=== PATIENT | female | born 1995 | race African-American/Black ===

== ENCOUNTER 2023-09-28 21:35 | Emergency (ER) | payer BC, SELFPAY ==
--- NOTE | ~2023-09-28 | XR_ITS ---
EXAM: XR ankle RT min 3V, XR foot RT min 3V DATE: 09/28/2023 22:02 (accession [id number]), 09/28/2023 21:59 (accession [id number]) HISTORY: rolled right ankle . COMPARISON: None available. FINDINGS: Normal mineralization. Avulsion fracture along the superior aspect of the navicular. No ot her fracture. No dislocation. No lytic or blastic lesion. Joint spaces are maintained. Mild hallux va lgus. No erosion or periosteal change. Mild soft tissue swelling over the fracture site. IMPRESSION: Talonavicular capsular avulsion. No other acute osseous finding in the right ankle or joshua t. Reviewed, dictated and finalized at location [facility] IMPRESSION: Talonavicular capsular avulsion. No other acute osseous finding in the right ankle or foot.
[2023-09-28 21:41] VITALS: BP 112/77; PULSE 117; RESP 16; TEMP 36.6; O2SAT 100
--- NOTE | 2023-09-28 22:33 | ED.GENADULT ---
HPI - General Adult General Chief complaint: Extremity Injury, Lower Stated complaint: R foot pain Time Seen by Provider: 09/28/23 21:52 Source: patient Mode of arrival: ambulatory Limitations: no limitations History of Present Illness HPI narrative: This is a 27-year-old female who presents to the ED with chief complaint of ankle injury that occurred just prior to arrival. Patient states she was walking down stairs and missed the last step. She reports an inversion injury to the ankle. [place] cracking as she rolled it. Endorses trouble with weight-bearing. Denies numbness, weakness or any further injury. Review of Systems Review of Systems: All systems as dictated in HPI Exam Narrative: GENERAL: Well-appearing, well-nourished, and in no acute distress. HEAD: Normocephalic, atraumatic. EYES: PERRLA and EOMI. ENT: Nares clear, no rhinorrhea or epistaxis. Mucous membranes moist. Oropharynx without tonsillar hypertrophy exudate or other lesions. NECK: Supple. No adenopathy or masses. CHEST: No respiratory distress. Clear to auscultation. No wheezes rales or rhonchi HEART: Regular rate and rhythm. No murmur heard. Normal peripheral pulses. ABDOMEN: Soft, nontender, nondistended, normal active bowel sounds. MSK: Right lower extremity: Mild swelling to the right ankle. Tenderness to the right lateral ankle and dorsum of the foot proximally. Neurovascularly intact distally. Soft compartments Left lower extremity: Benign SKIN: Warm, dry, no rash. NEURO: Alert and oriented x3. No focal deficits. PSYCH: Normal mood and affect. Course Vital Signs Vital signs: Vital Signs Temperature 97.8 F 09/28/23 21:41 Pulse Rate 117 H 09/28/23 21:41 Respiratory Rate 16 09/28/23 21:41 Blood Pressure 112/77 09/28/23 21:41 Pulse Oximetry 100 09/28/23 21:41 Oxygen Delivery Room Air 09/28/23 21:41 Temperature 97.8 F 09/28/23 21:41 Pulse Rate 91 09/28/23 23:03 Respiratory Rate 15 09/28/23 23:03 Blood Pressure 110/68 09/28/23 23:03 Pulse Oximetry 99 09/28/23 23:03 Oxygen Delivery Room Air 09/28/23 21:41 Medical Decision Making MDM Narrative Medical decision making narrative: This is a 27-year-old female who presents to the ED for chief complaint of right ankle injury. Vitals are normal. Exam shows mild swelling and tenderness to the ankle and foot. No bruising, deformity. Right foot x-ray: IMPRESSION: Talonavicular capsular avulsion. No other acute osseous finding in the right ankle or foot. . Overall presentation is consistent with ankle sprain. Crutches and Gerald wrap given. Pt will be discharged in stable condition. Return precautions given and supportive measures discussed. Pt is understanding and agreeable with plan for discharge and follow-up with PCP. Vital Signs Vital Signs: Vital Signs Temperature 97.8 F 09/28/23 21:41 Pulse Rate 117 H 09/28/23 21:41 Respiratory Rate 16 09/28/23 21:41 Blood Pressure 112/77 09/28/23 21:41 Pulse Oximetry 100 09/28/23 21:41 Oxygen Delivery Room Air 09/28/23 21:41 Temperature 97.8 F 09/28/23 21:41 Pulse Rate 91 09/28/23 23:03 Respiratory Rate 15 09/28/23 23:03 Blood Pressure 110/68 09/28/23 23:03 Pulse Oximetry 99 09/28/23 23:03 Oxygen Delivery Room Air 09/28/23 21:41 Discharge Plan Discharge Clinical Impression: Ankle sprain and strain Patient Disposition: Home, Self-Care Condition: Stable Instructions: Antibiotic Form Additional Instructions: Your exam and imaging today show evidence of ankle sprain Use the Gerald wrap and crutches, progress from nonweightbearing to weight-bearing over the course of the next week. Follow-up with your PCP. Use ibuprofen every 4-6 hours as needed for pain control. Rest, ice and elevate the extremity as well. If you have any new or worsening symptoms please return to the ER for further evaluation. Follow-up/Referrals: PHYSICIAN,JUNIOR TECHNICAL WRITER [
[2023-09-28 23:03] VITALS: BP 110/68; PULSE 91; RESP 15; O2SAT 99
== END 2023-09-28 23:09 | disposition home or self-care (01) ==
PROVIDERS: Emergency Provider Physician Assistant
DX: S93.401A Sprain of unspecified ligament of right ankle, initial encounter (principal); S96.911A Strain of unspecified muscle and tendon at ankle and foot level, right foot, initial encounter; X50.9XXA Other and unspecified overexertion or strenuous movements or postures, initial encounter
CPT/HCPCS: 73610; 73630; 99283

== ENCOUNTER 2025-03-05 23:04 | Emergency (ER) | payer BC, SELFPAY ==
--- NOTE | ~2025-03-05 | CT_ITS ---
CT soft tissue neck w con Ordering provider: Ovidio Alonso APRN History: 29 years Female with . facial swelling w/ cellulitis left face and neck . Comparison: None. Technique: CT soft tissues neck was performed with contrast. Coronal and sagittal reformatted images were also obtained. The dose-length product was 442.23 mGy-cm. Findings: LOWER HEAD: The visualized brain parenchyma, optic globes/orbits and mastoids are normal. Mucoperio steal thickening within the left maxillary sinus. Remaining paranasal sinuses are clear. SALIVARY GLANDS: Unremarkable THYROID: Homogeneous SUPRAHYOID DEEP SPACES: Unremarkable. CAROTID ARTERIES: Unremarkable. JUGULAR VEINS: Patent. TONSILS: Both the lingual and posterior tonsils are prominent, without abnormal attenuation suggestin g a peritonsillar. ORAL CAVITY: Partially obscured by dental amalgam. Periapical abscesses around tooth 4., 8, 10, 13, 14 and 15 Subcentimeter periosteal abscess surrounding the posterior left maxillary sinus, measuring 10 x 9 x 3 mm with surrounding inflammatory change. PHARYNX, LARYNX AND TRACHEA: Patent and unremarkable. No prevertebral soft tissue swelling. SUPERFICIAL SOFT TISSUES: No pathologically enlarged or morphologically within the bilateral cervical chains or supraclavicular regions. Multiple scattered nonpathologically lymph nodes, a nonspecific f inding. THORACIC INLET/VISUALIZED UPPER CHEST: Unremarkable. SKELETAL: No significant degenerative change. IMPRESSION: Multiple dental caries with periapical abscesses, as detailed above. Small periosteal abscess along t he left posterior maxilla with surrounding inflammatory change within the soft tissues. Chronic left maxillary sinusitis. Reviewed, dictated and finalized at location A. IMPRESSION: Multiple dental caries with periapical abscesses, as detailed above. Small kristin osteal abscess along the left posterior maxilla with surrounding inflammatory c hange within the soft tissues. Chronic left maxillary sinusitis.
--- OUTSIDE RECORDS SUMMARY | 2025-03-05 23:07 | XMS_ITS | Clinical Summary ---
Author Organization [facility] Address [address] [place] [address] Phone Care Team Providers Care Hotel Services Sales Representative Name Role Phone Amari Salgado MD Unavailable [phone] Provider, Not On File Primary Care Provider Unav ailable Allergies Active Allergy Reactions Criticality Noted Date Comments Na Ferric Gluc Cplx In Sucrose Hives,Shortness of Breath,Swelling,Other (see Comments) High 02/26/2024 Back spasms/pain Iron Dextran Other (see Comments),Shortness of Breath High 09/29/2020 Medications ferrous sulfate 324 (65 Fe) MG Tablet Delayed Response Take 1 Tablet by mouth 3 times daily. 04/11/2018 Active oxyCODONE-aceta minophen (PERCOCET) 5-325 MG TabletIndicatio ns:Sickle cell disease without crisis (HCC) Take 1 Tablet by mouth every 8 hours as needed for Moderate or more severe pain. 30 Tablet 03/19/2024 Active Active Problems Problem Noted Date Diagnosed Date Iron deficiency anemia, unspecified 02/24/2024 Sickle cell disease without crisis 02/23/2024 Anemia 02/23/2024 Family History Medical History Relation Name Comments Cancer Father prostate Hypertension Mother Relation Name Status Comments Brother 1 Alive Brother 2 Alive Father Alive Mother Alive Sister Alive Social History Tobacco Use Types Packs/Day Years Used Date Smoking Tobacco: Never Smokeless Tobacco: Never Tobacco Cessation:Counseling Given: Not Answered Alcohol Use Standard Drinks/Week Comments Yes 0 (1 standard drink = 0.6 oz pur e alcohol) wine weekly Comments Unknown Sex and Gender Information Value Date Recorded Sex Assigned at Not on file Legal Sex Female 9:28 AM CDT Gender Identity Not on file Sexual Orientation Not on file Last Filed Vital Signs Vital Sign Reading Time Taken Comments Blood Pressure 120/80 09/27/2024 1:00 PM TAILORING TEACHER Pulse 98 09/27/2024 1:00 PM TAILORING TEACHER Temperature 36.6 C (97.8 F) 09/27/2024 1:00 PM TAILORING TEACHER Respiratory Rate 18 09/27/2024 1:00 PM TAILORING TEACHER Oxygen Saturation 99% 09/27/2024 1:00 PM TAILORING TEACHER Inhaled Oxygen Concentration - - Weight 72.8 kg (160 lb 9.6 oz) 09/27/2024 1:00 P M TAILORING TEACHER Height 160 cm (5' 3) 09/27/2024 1:00 PM TAILORING TEACHER Body Mass Index 28.45 09/27/2024 1:00 PM TAILORING TEACHER Plan of Treatment Health Maintenance Due Date Last Done Comments Hepatitis C Virus (HCV) Screening 1994 Meningococcal Immunization (ACWY) (1 - Risk 2-dose series) 1996 Human Papillomavirus (HPV) Immunization (1 - 3-dose series) 2009 Pneumococcal Immunization Combined (1 of 2 - PCV) 2013 Pap Smear 2015 SARS-COV-2 Immunization ( - season) 2024 Cervical Cancer Screening (CCS) 2024 HPV/Cotest 2024 Influenza Immunization (#1) 2025 07/21/2014 Respiratory Syncytial Virus (RSV) Immunization (Adult) (1 - 1-dose 75+ series) 2069 Hepatitis B Immunization Completed 995, 02/18/1995, 1994 TdaP Immunization Completed 05/29/2009 Rotavirus Immunization Aged Out No lo nger eligible based on patient's age to complete this topic Insurance [place] [id number] Care Teams Hotel Services Sales Representative Relationship Specialty Start Date End Date Provider, Not On File MA PCP - General 02/23/24 Amari Salgado MD [address] [place] [id number] Consulting Physician Oncology 02/13/24
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
--- OUTSIDE RECORDS SUMMARY | 2025-03-05 23:07 | XMS_ITS | Referral Summary ---
Author Organization [facility] at [facility] Office Center Address [address] [place] [address] Care Team Providers Care Chain Dyer Name Role Phone Yaquelin Luis MD Unavailable [phone] [place] Hand TREE GIRDLER Primary Care Provider [phone] Allergies Active Allergy Reactions Criticality Noted Date [...] (09/13/2020): Added automatically from request for surgery [id number] Nasal turbinate hypertrophy 09/13/2020 Overview (09/13/2020): Added automatically from request for surgery [id number] Nasal septal deviation 09/13/2020 Overview (09/26/2020): Added automatically from request for surgery [id number] Adult general medical exam 10/19/2019 Iron deficiency anemia due to chronic blood loss 10/19/2019 Overview (04/06/2023): Last Assessment & Plan: Stable Cont ferrous sulfate Menorrhagia 07/21/2014 Assessment & Plan (05/15/2020 12:24 PM CDT): Persistent Will refer to Dr. Griffith Assessment & Plan (03/16/2020 4:34 AM CDT): Uncontrolled F/u with signal engineer Resolved Problems Problem Noted Date Diagnosed Date [...] Quadrivalent, Spl it, Preservative Free, Intramuscular 07/21/2014 Social History Tobacco Use Types Packs/Day Years Used Date Smoking Tobacco: Never Smokeless Tobacco: Never Alcohol Use Standard Drinks/Week Comments Yes 3 (1 standard drink = 0.6 oz pur e alcohol) [facility] Utilities Answer Date Recorded In the past 12 months has [employer], [employer], oil, or water [employer] threatened to shut off services in your [...] often do you attend chur ch or bahai services? Never 10/18/2024 Do you belong to any clubs o r organizations such as anglican groups, unions, fraternal or athletic groups, or [...] any time in the past 12 m [facility], were you homeless or living in a senior living (including now)? No 10/18/2024 Personal Safety Answer Date Recorded Have you ever been in or are you currently in a harmful physical or emotional relationship or is someone making you feel afraid or unsafe? Denies 10/15/2024 Comments No Sex and Gender Information Value Date Recorded Sex Assigned at Not on file Legal Sex Female 4:43 AM BANK APPRAISER Gender Identity Not on file Sexual Orientation [...] 73.5 kg (162 lb) 10/16/2024 5:11 AM BANK APPRAISER Height 160 cm (5' 3) 10/16/2024 5:11 AM BANK APPRAISER Body Mass Index 28.7 10/16/2024 5:11 AM BANK APPRAISER Plan of Treatment Not on file Insurance MAIL RETURN E [address] [facility] PLAN [facility] PLAN [facility] PL[facility] Advance Directives For more information, please contact: [phone] * Full Code (Latest Code Status on File) Date Activated Date Inactivated Comments 10/16/2024 4:11 AM 10/20/2024 7:17 PM Care Teams Chain Dyer Relationship Specialty Start Date End Date [place] Hand NP [address] [facility] [address] [place] [address] PCP - General Family Medicine 10/18/24 Yaquelin Luis MD [address] [place] [address] Medical Oncologist/Director Traffic And Planning Hematology 09/28/20
--- OUTSIDE RECORDS SUMMARY | 2025-03-05 23:07 | XMS_ITS | Clinical Summary ---
Author Organization [facility] [employer] Address [address] [place] [address] Care Team Providers Care Brick Burner Head Name Role Phone Chantell Chung MD Primary Care Provider [phone] Source Comments [facility] [employer],non-owned Affiliates and Associated Physician Practices is amultiple site organization consisting of ambulatory clinics and hospital sitesin [place], [place], [place] and [place]. This disclosure is being madepursuant to the Care Everywhere program and may not contain all information available regarding this patient. Last updated 18.[facility] [employer] Allergies No known active allergies Medications * Be aware that medications may not be up to date on this document. Alwaysverify current medications with the patient. polyethylene glycol 3350 (MIRALAX) packet Take by mouth once daily. Active norgestim-eth estrad triphasic (TRINESSA, 28,) tabletIndication s:Anemia Take 1 Tab by mouth once daily. 07/21/2014 Active ferrous sulfate EC (FERROUS SULFATE) 324 (65 FE) MG tablet Take 1 tablet by mouth 3 times daily 90 tablet 04/11/2018 Active Active Problems Problem Noted Date Diagnosed Date Anemia 07/21/2014 Menorrhagia 07/21/2014 Immunizations Immunization Administration Dates Next Due INFLUENZA VACCINE, QUADR. (F LUZONE; FLULAVAL; FLUARIX; AFLURIA QUADRIVALENT; 6MO+), 0.5 ML (IIV4) 07/21/2014 Family History Medical History Relation Name Comments Anemia Mother Hypertension Mother Relation Name Status Comments Father Alive Mother Alive Social History Tobacco Use Types Packs/Day Years Used Date Smoking Tobacco: Never Alcohol Use Standard Drinks/Week Comments No 0 (1 standard drink = 0.6 oz pur e alcohol) Comments No Sex and Gender Information Value Date Recorded Sex Assigned at Not on file Legal Sex Female 5:38 AM ANTENNA ENGINEER Gender Identity Not on file Sexual Orientation Not on file Occupation Industry Job Start Date Job End 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 Not on file 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 Not on file Not on file Last Filed Vital Signs Vital Sign Reading Time Taken Comments Blood Pressure 113/90 06/14/2020 1:00 AM ANTENNA ENGINEER Pulse 87 06/13/2020 10:23 PM ANTENNA ENGINEER Temperature 36.6 C (97.9 F) 06/13/2020 10:23 PM ANTENNA ENGINEER Respiratory Rate 18 06/13/2020 10:23 PM ANTENNA ENGINEER Oxygen Saturation 100% 06/14/2020 1:00 AM ANTENNA ENGINEER Inhaled Oxygen Concentration - - Weight 63.5 kg (140 lb) 04/05/2020 12:40 PM CDT Height 165.1 cm (5' 5) 04/05/2020 12:40 PM CDT Body Mass Index 23.3 04/05/2020 12:40 PM CDT Plan of Treatment Health Maintenance Due Date Last Done Comments HIV SCREENING 2009 HEPATITIS C SCREENING 09/28/2012 DTAP/TDAP/TD VACCINES (1 - Tdap) 2013 HEPATITIS B VACCINE (1 of 3 - 19+ 3-dose series) 2013 HPV VACCINE (1 - 3-dose SCDM series) 2021 COVID-19 VACCINE ( - 2023-2 5 season) 2024 DEPRESSION SCREENING 08/11/2024 INFLUENZA VACCINE (#1) 2025 07/21/2014 ZOSTER VACCINE (1 of 2) 2044 HIB VACCINE Aged Out No longer eligi ble based on patient's age to complete this topic MENINGOCOCCAL (Group B) VACC INE SHARED DECISION-MAKING Aged Out No longer eligibl e based on patient's age to complete this topic MENINGOCOCCAL GROUPS A/C/Y/W VACCINE Aged Out No longer eligible b ased on patient's age to complete this topic PNEUMOCOCCAL VACCINE Aged Out No long er eligible based on patient's age to complete this topic Insurance [employer] [facility] [employer] [facility] [employer] [facility] [employer] [facility] Advance Directives * Full Code (Latest Code Status on File) Date Activated Date Inactivated Comments 04/10/2018 4:24 PM 04/11/2018 12:40 PM * Full Code Date Activated Date Inactivated Comments 04/10/2018 3:14 PM 04/10/2018 4:24 PM Care Teams Brick Burner Head Relationship Specialty Start Date End Date Chantell Chung MD [id number] [address] PCP - General 06/19/20
--- OUTSIDE RECORDS SUMMARY | 2025-03-05 23:07 | XMS_ITS | Clinical Summary ---
Author Organization [facility] Address [address] [place] [address] Care Team Providers Care Booking Supervisor Name Role Phone None, Provider MD Primary Care Provider Unavaila ble Allergies Active Allergy Reactions Criticality Noted Date Comments Na Ferric Gluc Cplx In Sucrose Anaphylaxis High Iron Dextran Chest pressure,Short ness of Breath High 09/29/2020 Medications folic acid (FOLVITE) 1 MG tablet Take 1 tablet (1 mg total) by mouth daily. 30 tablet 02/12/2024 Active oxyCODONE-acetam inophen (PERCOCET) 5-325 MG tabletIndication s:Acute Pain < 7 Day Supply Take 1 tablet by mouth every 8 (eight) hours as needed for Pain. Indications : Acute Pain < 7 Day Supply 15 tablet 02/27/2024 Active Active Problems Problem Noted Date Diagnosed Date Allergic reaction 02/26/2024 Sickle cell crisis ([facility]) 02/06/2024 Iron deficiency anemia, unspecified 10/19/2019 Overview (06/04/2020): Last Assessment & Plan: Stable Cont ferrous sulfate Anemia 02/15/2019 Assessment & Plan (02/15/2019 5:54 AM CDT): Recurrent, uncontrolled. Hx of requiring several transfusions in the past. Unclear hx of diagnosis of sickle cell; reticulocyte not elevated (at baseline 1-1.2%), no sickle cells on Hgb electrophoresis in outside records; in fact, 2013 Hgb Electrophoresis was normal without other hemoglobinopathies. Baseline Hgb around 10, 6.4 on admission. Given retic count at baseline based on outside records and overall appearance, low suspicion for aplastic crisis. No signs/symptoms of acute chest. Hx of heavy menstrual periods and iron deficiency on admission, suspect likely etiology of her anemia. Meets observation criteria due to symptomatic anemia requiring blood transfusion. - Admit to observation, attending Dr. Bhatia - Transfuse 1u PRBCs, then check H&H - Continue iron supplementation - Peripheral smear ordered - Tylenol, ibuprofen prn for pain - Will need new PCP for follow up of her anemia and unclear diagnosis of sickle cell disease, would benefit from control to manage her menorrhagia Menorrhagia 07/21/2014 Social History Tobacco Use Types Packs/Day Years Used Date Smoking Tobacco: Never Smokeless Tobacco: Never Alcohol Use Standard Drinks/Week Comments Yes 0 (1 standard drink = 0.6 oz pur e alcohol) [facility] Utilities Answer Date Recorded In the past 12 months has e [employer], gas, oil, or water [email or web address] threatened to shut off services in your home? No 02/06/2024 Humiliation, Afraid, Rape, and Kick questionnair e Answer Date Recorded Within the last year, have y ou been afraid of your partner or ex-partner? No 02/06/2024 Within the last year, have y ou been humiliated or emotionally abused in other ways by your partner or ex-partner? No Within the last year, have y ou been kicked, hit, slapped, or otherwise physically hurt by your partner or ex-partner? No 02/06/2024 Within the last year, have y ou been raped or forced to have any kind of sexual activity by your partner or ex-partner? No 02/06/2024 AUDIT-C Answer Date Recorded Frequency of Alcohol Consumption Monthly or less 02/15/2019 Average Number of Drinks 1 or 2 019 Frequency of Binge Drinking Not on file 03/2019 Overall Financial Resource Strain (CARDIA) Answe r Date Recorded How hard is it for you to pa y for the very basics like food, housing, medical care, and heating? Not hard at all 02/06/2024 Hunger Vital Sign Answer Date Recorded Within the past 12 months, y ou worried that your food would run out before you got the money to buy more. Never true 02/06/20 24 Within the past 12 months, t he food you bought just didn't last and you didn't have money to get more. Never true 02/06/2024 PRAPARE - Transportation Answer Date Re corded In the past 12 months, has l ack of transportation kept you from medical appointments or from getting medications? No 01/10 In the past 12 months, has l ack of transportation kept you from meetings, work, or from getting things needed for daily living? No 02/06/2024 Housing Stability Vital Sign Answer Andrew e Recorded In the last 12 months, was t here a time when you were not able to pay the mortgage or rent on time? No 02/06/2024 In the past 12 months, how m any times have you moved where you were living? 1 02/06/2024 At any time in the past 12 m [facility], were you homeless or living in a m[facility] (including now)? No 02/06/2024 Comments No Sex and Gender Information Value Date Recorded Sex Assigned at Not on file Legal Sex Female 10:15 PM CDT Gender Identity Not on file Sexual Orientation Not on file Last Filed Vital Signs Vital Sign Reading Time Taken Comments Blood Pressure 130/74 06/22/2024 6:08 AM DENTAL MECHANIC Pulse 89 06/22/2024 2:55 AM DENTAL MECHANIC Temperature 36.3 C (97.4 F) 06/22/2024 2:55 AM DENTAL MECHANIC Respiratory Rate 20 06/22/2024 2:55 AM DENTAL MECHANIC Oxygen Saturation 97% 06/22/2024 2:55 AM DENTAL MECHANIC Inhaled Oxygen Concentration - - Weight 73.9 kg (163 lb) 06/22/2024 2:55 AM DENTAL MECHANIC Height 160 cm (5' 3) 06/22/2024 2:55 AM DENTAL MECHANIC Body Mass Index 28.87 06/22/2024 2:55 AM DENTAL MECHANIC Plan of Treatment Health Maintenance Due Date Last Done Comments Cervical Cancer Screening Pap Smear (Age 30 to 64) Every 3 Years 1994 Annual Physical 1997 Meningococcal B Vaccine (1 of 5 - Increased Risk) 2004 Meningococcal Vaccine (1 - Risk start 2-23 months series) 07/24/2009 05/29/2009 Hepatitis C 2012 Pneumococcal Vaccine: Pediatrics (0 to 5 Years) and At-Risk Patients (6 to 49 Years) (1 of 2 - PCV) 2013 DTaP, Tdap and Td Vaccines (7 - Td or Tdap) 05/29/2019 05/29/2009, 01/12/1999, 04/02/1996, Additional history exists HPV Vaccines (1 - 3-dose SCDM series) 2021 COVID-19 Vaccine ( season) 2024 Cervical Cancer Screening Pap with HPV Testing (Age 30 to 64) Every 5 Years 2024 Cervical Cancer Screening with HPV 2024 Hepatitis B Vaccines Completed 04/29/1995, 02/18/1995, 1994 RSV Immunizations Under 20 Months Aged Out No longer eligible based on patient's age to complete this topic Goals Goal Patient Goal Type Associated Problems Recent Progress Patient-Stated? Author Discharge Patient/family verbalizes understanding regarding the need to set up PCP Lifestyle No Saumya Neely RN Patient will return to prior living situation and remain independent in ADLs upon discharge from hospital Lifestyle No Saumya Neely RN Insurance Advance Directives * Full Code (Latest Code Status on File) Date Activated Date Inactivated Comments 02/26/2024 3:44 PM 02/27/2024 10:46 PM * Full Code Date Activated Date Inactivated Comments 02/06/2024 7:06 PM 02/11/2024 2:01 PM * Full Code Date Activated Date Inactivated Comments 06/04/2020 2:34 AM 06/04/2020 2:16 PM * Full Code Date Activated Date Inactivated Comments 02/15/2019 3:59 AM 02/15/2019 6:02 PM * Full Code Date Activated Date Inactivated Comments 02/15/2019 3:59 AM 02/15/2019 3:59 AM Care Teams Booking Supervisor Relationship Specialty Start Date End Date None, Provider, PCP - General 02/14/19
[2025-03-05 23:22] VITALS: BP 135/68; PULSE 99; RESP 20; TEMP 36.8; O2SAT 100
[2025-03-06] VITALS (8 sets, daily range): BP systolic 111–123; BP diastolic 79–90; PULSE 70–73; RESP 14–16; O2SAT 96–100
[2025-03-06 00:44] LABS: Hematocrit 31.3 % (37.0-47.0); Hemoglobin 10.0 g/dL (12.0-15.0); Immature Granulocyte Percent A 0.4 % (0-0.5); Immature Reticulocyte Fraction 10.9 % (3.0-15.9); Lymphocytes Absolute Auto 2.06 K/mm3 (0.9-3.2); Mean Corpuscular HGB Conc 31.9 g/dl (32-36); Mean Corpuscular Hemoglobin 28.3 pg (26-34); Mean Corpuscular Volume 88.7 fl (80-100); Nucleated Red Blood Cells Absolute Auto 0.000 K/mm3 (0.0-0.012); Nucleated Red Blood Cells Perc 0.0 % (0.0-0.2); Platelet Count Result 241 k/mm3 (150-375); Red Blood Count 3.53 M/mm3 (4.2-5.4); Reticulocyte Hemoglobin Conten 28.7 pg (28.2-36.6); Reticulocytes Absolute 0.07 10^6/uL (0.02-0.10); White Blood Count 6.9 K/mm3 (4.5-10.0)
--- NOTE | 2025-03-06 00:49 | ED_ITS ---
HPI - General Adult General Chief complaint: Extremity Problem,Nontraumatic <Ovidio Alonso APRN - Last Filed: 03/06/25 02:03> Stated complaint: pain in legs and throat closing up <Ovidio Alonso APRN - Last Filed: 03/06/25 02:03> Time Seen by Provider: 03/06/25 00:21 <Ovidio Alonso APRN - Last Filed: 03/06/25 02:03> Source: patient and family <Ovidio Alonso APRN - Last Filed: 03/06/25 02:03> Mode of arrival: ambulatory <Ovidio Alonso APRN - Last Filed: 03/06/25 02:03> Limitations: no limitations <Ovidio Alonso APRN - Last Filed: 03/06/25 02:03> History of Present Illness HPI narrative: 29 y/o AAF in the ED for swelling and pain to her left jaw and neck. Pt currently being seen for a dental abscess to the left upper molar. Pt currently on Amoxicillin, on Day 5. Pt has noted that over the last 1-2 days swelling to the left face has increased and spread down to her lower jaw and neck. Pt endorses difficulty swallowing and opening of the mouth d/ t pain. Pt also endorsing it is becoming harder to swallow her own spit. Pt denies inability to speak, swallow. Patient also endorses history of sickle cell. In complaining of bilateral knee and ankle pain. Patient states she normally takes oxycodone and is currently out. <Ovidio Alonso APRN - Last Filed: 03/06/25 02:03> Related Data Allergies/adverse reactions: Allergies Allergy/AdvReac Type Severity Reaction Status Date / Time dextran sulfate Allergy HIVES Verified 03/05/25 23:29 <Ovidio Alonso APRN - Last Filed: 03/06/25 02:03> Review of Systems 2 Review of Systems: CONSTITUTIONAL: Denies fever, chills, or sweats. EYES: Denies visual changes, redness, or discharge. ENT: Endorses swelling and pain to the left side of her face, jaw, and neck. Denies rhinorrhea, congestion, sore throat, or otalgia. CARDIOVASCULAR: Denies chest pain, palpitations, or edema. RESPIRATORY: Denies cough or dyspnea. GASTROINTESTINAL: Denies abdominal pain, nausea, vomiting, or diarrhea. GENITOURINARY: Denies dysuria or hematuria. SKIN: Denies rash or itching. MUSCULOSKELETAL: Endorses joint pain. Denies back pain or myalgia. NEUROLOGIC: Denies headache, numbness, or weakness. PSYCHIATRIC: Denies anxiety or depression. <Ovidio Alonso APRN - Last Filed: 03/06/25 02:03> Exam 2 Narrative: GENERAL: Well-appearing, well-nourished, and in no acute distress. HEAD: Normocephalic, atraumatic. EYES: PERRLA and EOMI. ENT: Nares clear, no rhinorrhea or epistaxis. Mucous membranes moist. Swelling to the left upper and lower jaw NECK: Supple. CHEST: Clear to auscultation. No respiratory distress. HEART: Regular rate and rhythm. No murmur heard. Normal peripheral pulses. ABDOMEN: Soft, nontender, nondistended, normal active bowel sounds. EXTREMITIES: Normal range of motion. No edema. SKIN: Warm, dry, no rash. NEURO: No focal deficits. Alert and oriented x3. PSYCH: Normal mood and affect. <Ovidio Alonso APRN - Last Filed: 03/06/25 02:03> Course EPIC MANAGER/PA Physician Supervision I performed the medical decision making component of this evaluation. Briefly, patient with history of sickle cell, on day 5 of amoxicillin for dental infection, with worsening swelling to her cheek and neck; she had reported a hoarse voice. After fluids, Toradol, dexamethasone, Unasyn, on re-evaluation patient states she does feel much better, her voice is improved. CT does show periosteal abscess with recommendation for dental consult. I did call [facility], spoke with Dr. Saucedo oral surgeon who did review the imaging, did feel patient would require drainage, and if any difficulty in following up, recommended transfer to their facility. Discussed with patient who is agreeable to the plan. <Gissel Fields MD - Last Filed: 03/06/25 04:08> Vital Signs Vital signs: Vital Signs Temperature 98.2 F 03/05/25 23:22 Pulse Rate 99 03/05/25 23:22 Respiratory Rate 20 03/05/25 23:22 Blood Pressure 135/68 03/05/25 23:22 Pulse Oximetry 100 03/05/25 23:22 Oxygen Delivery Room Air 03/05/25 23:22 Temperature 98.2 F 03/05/25 23:22 Pulse Rate 70 03/06/25 02:22 Respiratory Rate 14 03/06/25 02:22 Blood Pressure 120/79 03/06/25 02:22 Pulse Oximetry 98 03/06/25 02:22 Oxygen Delivery Room Air 03/06/25 01:52 <Ovidio Alonso APRN - Last Filed: 03/06/25 02:03> Vital Signs Temperature 98.2 F 03/05/25 23:22 Pulse Rate 99 03/05/25 23:22 Respiratory Rate 20 03/05/25 23:22 Blood Pressure 135/68 03/05/25 23:22 Pulse Oximetry 100 03/05/25 23:22 Oxygen Delivery Room Air 03/05/25 23:22 Temperature 98.2 F 03/05/25 23:22 Pulse Rate 70 03/06/25 02:22 Respiratory Rate 14 03/06/25 02:22 Blood Pressure 120/79 03/06/25 02:22 Pulse Oximetry 98 03/06/25 02:22 Oxygen Delivery Room Air 03/06/25 01:52 <Gissel Fields MD - Last Filed: 03/06/25 04:08> Medical Decision Making MDM Narrative Medical decision making narrative: HPI: /o AAF in the ED for swelling and pain to her left jaw and neck. Pt currently being seen for a dental abscess to the left upper molar. Pt currently on Amoxicillin, on Day 5. Pt has noted that over the last 1-2 days swelling to the left face has increased and spread down to her lower jaw and neck. Pt endorses difficulty swallowing and opening of the mouth d/ t pain. Pt also endorsing it is becoming harder to swallow her own spit. Pt denies inability to speak, swallow. Patient also endorses history of sickle cell. In complaining of bilateral knee and ankle pain. Patient states she normally takes oxycodone and is currently out. My Plan Labs Ordered: CBC, CMP, retic count Imaging Ordered: CT soft tissue face and neck with contrast. Medications Ordered: 1 mg Dilaudid for sickle cell pain. 3 g. Unasyn ordered 1 time Results: Diagnosis: Risks: HEART score, PECARN score, CURB-65 score Consults: Due to extensive swelling and spreading of swelling from the upper jaw out into the lower jaw and neck, and addition of raspy voice/hot potato voice, CT of the face neck soft tissue with contrast ordered. At this time cbc is unremarkable with a negative white count as is the CMP. Patient signed out to Dr. Fields. < Ovidio Alonso, BREAKFAST AND ROOM ATTENDANT - Last Filed: 03/06/25 02:03> Differential Diagnosis Differential Diagnosis: Strep throat, dental abscess, Shaggy's angina, cellulitis, peritonsillar abscess <Ovidio Alonso, BREAKFAST AND ROOM ATTENDANT - Last Filed: 03/06/25 02:03> Medical Records Medical records reviewed: Yes I reviewed the external patient's medical records. <Ovidio Alonso, BREAKFAST AND ROOM ATTENDANT - Last Filed: 03/06/25 02:03> Vital Signs Vital Signs: Vital Signs Temperature 98.2 F 03/05/25 23:22 Pulse Rate 99 03/05/25 23:22 Respiratory Rate 20 03/05/25 23:22 Blood Pressure 135/68 03/05/25 23:22 Pulse Oximetry 100 03/05/25 23:22 Oxygen Delivery Room Air 03/05/25 23:22 Temperature 98.2 F 03/05/25 23:22 Pulse Rate 70 03/06/25 02:22 Respiratory Rate 14 03/06/25 02:22 Blood Pressure 120/79 03/06/25 02:22 Pulse Oximetry 98 03/06/25 02:22 Oxygen Delivery Room Air 03/06/25 01:52 <Ovidio Alonso, BREAKFAST AND ROOM ATTENDANT - Last Filed: 03/06/25 02:03> Vital Signs Temperature 98.2 F 03/05/25 23:22 Pulse Rate 99 03/05/25 23:22 Respiratory Rate 20 03/05/25 23:22 Blood Pressure 135/68 03/05/25 23:22 Pulse Oximetry 100 03/05/25 23:22 Oxygen Delivery Room Air 03/05/25 23:22 Temperature 98.2 F 03/05/25 23:22 Pulse Rate 70 03/06/25 02:22 Respiratory Rate 14 03/06/25 02:22 Blood Pressure 120/79 03/06/25 02:22 Pulse Oximetry 98 03/06/25 02:22 Oxygen Delivery Room Air 03/06/25 01:52 <Gissel Fields MD - Last Filed: 03/06/25 04:08> Lab Data Lab results reviewed: Yes I reviewed the patient's lab results. <Ovidio Alonso APRN - Last Filed: 03/06/25 02:03> Result diagrams: 03/06/25 00:37 03/06/25 00:37 <Ovidio Alonso APRN - Last Filed: 03/06/25 02:03> Labs: Lab Results 03/06/25 Range/Units 00:37 WBC 6.9 (4.5-10.0) K/mm3 RBC 3.53 L (4.2-5.4) M/mm3 Hgb 10.0 L (12.0-15.0) g/dL Hct 31.3 L (37.0-47.0) % MCV 88.7 (80-100) fl MCH 28.3 (26-34) pg MCHC 31.9 L (32-36) g/dl RDW 12.9 (11.5-14.5) % Plt Count 241 (150-375) k/mm3 MPV 10.9 H (7.4-10.4) fl Immature Gran % (Auto) 0.4 (0-0.5) % Neut % (Auto) 60.2 (45.5-73.1) % Lymph % (Auto) 29.9 (18.3-44.2) % Delta % (Auto) 6.8 (2.6-8.5) % Eos % (Auto) 2.3 (0-4.4) % Baso % (Auto) 0.4 (0.2-1.2) % Lymph # (Auto) 2.06 (0.9-3.2) K/mm3 Delta # (Auto) 0.5 (0.1-0.6) K/mm3 Eos # (Auto) 0.2 (0-0.3) K/mm3 Baso # (Auto) 0.0 (0.0-0.1) K/mm3 Abs Immat Gran (auto) 0.03 (0.00-0.031) K/mm3 Absolute Neuts (auto) 4.1 (1.3-6.7) K/mm3 Absolute Nucleated RBC 0.000 (0.0-0.012) K/mm3 Nucleated RBC % 0.0 (0.0-0.2) % Absolute Retic 0.07 (0.02-0.10) 10^6/uL Percent Retic 1.84 (0.7-4.3) % Immature Retic Fraction 10.9 (3.0-15.9) % Retic Hgb Content 28.7 (28.2-36.6) pg Sodium 133 L (137-145) mmol/L Potassium 3.2 L (3.4-5.0) mmol/L Chloride 103 (98-107) mmol/L Carbon Dioxide 26 (22-30) mmol/L Anion Gap 4 (4-12) mmol/L BUN 12 (7-17) mg/dL Creatinine 0.69 L (0.7-1.0) mg/dL Estim Creat Clear Calc 101 ml/min Estimated GFR > 60 (59 - ) Glucose 87 (65-110) mg/dL Calcium 8.4 (8.4-10.2) mg/dL Total Bilirubin 0.7 (0.2-1.3) mg/dL AST 28 (14-36) U/L ALT 16 (6-35) U/L Alkaline Phosphatase 74 (38-126) U/L Total Protein 7.1 (6.3-8.2) g/dL Albumin 3.8 (3.5-5.1) g/dL <Ovidio Alonso, BREAKFAST AND ROOM ATTENDANT - Last Filed: 03/06/25 02:03> Lab Results 03/06/25 Range/Units 00:37 WBC 6.9 (4.5-10.0) K/mm3 RBC 3.53 L (4.2-5.4) M/mm3 Hgb 10.0 L (12.0-15.0) g/dL Hct 31.3 L (37.0-47.0) % MCV 88.7 (80-100) fl MCH 28.3 (26-34) pg MCHC 31.9 L (32-36) g/dl RDW 12.9 (11.5-14.5) % Plt Count 241 (150-375) k/mm3 MPV 10.9 H (7.4-10.4) fl Immature Gran % (Auto) 0.4 (0-0.5) % Neut % (Auto) 60.2 (45.5-73.1) % Lymph % (Auto) 29.9 (18.3-44.2) % Delta % (Auto) 6.8 (2.6-8.5) % Eos % (Auto) 2.3 (0-4.4) % Baso % (Auto) 0.4 (0.2-1.2) % Lymph # (Auto) 2.06 (0.9-3.2) K/mm3 Delta # (Auto) 0.5 (0.1-0.6) K/mm3 Eos # (Auto) 0.2 (0-0.3) K/mm3 Baso # (Auto) 0.0 (0.0-0.1) K/mm3 Abs Immat Gran (auto) 0.03 (0.00-0.031) K/mm3 Absolute Neuts (auto) 4.1 (1.3-6.7) K/mm3 Absolute Nucleated RBC 0.000 (0.0-0.012) K/mm3 Nucleated RBC % 0.0 (0.0-0.2) % Absolute Retic 0.07 (0.02-0.10) 10^6/uL Percent Retic 1.84 (0.7-4.3) % Immature Retic Fraction 10.9 (3.0-15.9) % Retic Hgb Content 28.7 (28.2-36.6) pg Sodium 133 L (137-145) mmol/L Potassium 3.2 L (3.4-5.0) mmol/L Chloride 103 (98-107) mmol/L Carbon Dioxide 26 (22-30) mmol/L Anion Gap 4 (4-12) mmol/L BUN 12 (7-17) mg/dL Creatinine 0.69 L (0.7-1.0) mg/dL Estim Creat Clear Calc 101 ml/min Estimated GFR > 60 (59 - ) Glucose 87 (65-110) mg/dL Calcium 8.4 (8.4-10.2) mg/dL Total Bilirubin 0.7 (0.2-1.3) mg/dL AST 28 (14-36) U/L ALT 16 (6-35) U/L Alkaline Phosphatase 74 (38-126) U/L Total Protein 7.1 (6.3-8.2) g/dL Albumin 3.8 (3.5-5.1) g/dL <Gissel Fields MD - Last Filed: 03/06/25 04:08> Critical Care Time Critical Care Time Critical Care Time: Yes <Gissel Fields MD - Last Filed: 03/06/25 04:08> Total Critical Care Time: 31 <Gissel Fields MD - Last Filed: 03/06/25 04:08> Discharge Plan Discharge Clinical Impression: Abscess, dental <Ovidio Alonso APRN - Last Filed: 03/06/25 02:03> Patient Disposition: Acute Care Hospital <Ovidio Alonso APRN - Last Filed: 03/06/25 02:03> Condition: Stable <Ovidio Alonso APRN - Last Filed: 03/06/25 02:03> Additional Instructions: Please follow up with Dr Saucedo oral surgeon at [facility]; [phone]. <Ovidio Alonso APRN - Last Filed: 03/06/25 02:03> Patient Language: Telugu <Ovidio Alonso APRN - Last Filed: 03/06/25 02:03> Follow-up/Referrals: PHYSICIAN,RECORDING STUDIO SET UP WORKER [Primary Care Provider] - <Ovidio Alonso APRN - Last Filed: 03/06/25 02:03>
--- OUTSIDE RECORDS SUMMARY | 2025-03-06 01:01 | XMS_ITS | Clinical Summary ---
Author Organization [facility] Address [address] [place] [address] Care Team Providers Care Diesel Truck Driver Name Role Phone Chantell Chung MD Primary Care Provider [phone] Source Comments [facility],non-owned Affiliates and Associated Physician Practices is amultiple site organization consisting of ambulatory clinics and hospital sitesin [place], [place], [place] and [place]. This disclosure is being madepursuant to the Care Everywhere program and may not contain all information available regarding this patient. Last updated 18.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 Not on file Not on file Last Filed Vital Signs Vital Sign Reading Time Taken Comments Blood Pressure 113/90 06/14/2020 1:00 AM JOB PRINTER APPRENTICE Pulse 87 06/13/2020 10:23 PM JOB PRINTER APPRENTICE Temperature 36.6 C (97.9 F) 06/13/2020 10:23 PM JOB PRINTER APPRENTICE Respiratory Rate 18 06/13/2020 10:23 PM JOB PRINTER APPRENTICE Oxygen Saturation 100% 06/14/2020 1:00 AM JOB PRINTER APPRENTICE Inhaled Oxygen Concentration - - Weight 63.5 [...] topic Insurance [employer] [facility] [employer] [facility] [employer] [facility] [facility] [employer] [facility] Advance Directives * Full Code (Latest Code Status on File) Date Activated Date Inactivated Comments 04/10/2018 4:24 PM 04/11/2018 12:40 PM * Full Code Date Activated Date Inactivated Comments 04/10/2018 3:14 PM 04/10/2018 4:24 PM Care Teams Diesel Truck Driver Relationship Specialty Start Date End Date Chantell Chung MD [address] [address] PCP - General 06/19/20
--- OUTSIDE RECORDS SUMMARY | 2025-03-06 01:01 | XMS_ITS | Clinical Summary ---
Author Organization [facility] Address [address] [place] [address] Phone Care Team Providers Care Loss Prevention Specialist Name Role Phone Amari Salgado MD Unavailable [phone] Provider, Not On File Primary Care Provider [...] Comments Blood Pressure 120/80 09/27/2024 1:00 PM POWERTRAIN DESIGN ENGINEER Pulse 98 09/27/2024 1:00 PM POWERTRAIN DESIGN ENGINEER Temperature 36.6 C (97.8 F) 09/27/2024 1:00 PM POWERTRAIN DESIGN ENGINEER Respiratory Rate 18 09/27/2024 1:00 PM POWERTRAIN DESIGN ENGINEER Oxygen Saturation 99% 09/27/2024 1:00 PM POWERTRAIN DESIGN ENGINEER Inhaled Oxygen Concentration - - Weight 72.8 kg (160 lb 9.6 oz) 09/27/2024 1:00 P M POWERTRAIN DESIGN ENGINEER Height 160 cm (5' 3) 09/27/2024 1:00 PM POWERTRAIN DESIGN ENGINEER Body Mass Index 28.45 09/27/2024 1:00 PM POWERTRAIN DESIGN ENGINEER Plan of Treatment Health Maintenance Due Date [...] Insurance [place] [id number] Care Teams Loss Prevention Specialist Relationship Specialty Start Date End Date Provider, Not On File [place] PCP - General 02/23/24 Amari Salgado MD [address] [place] [phone] Consulting Physician Oncology 02/13/24
--- OUTSIDE RECORDS SUMMARY | 2025-03-06 01:01 | XMS_ITS | Clinical Summary ---
Author Organization [facility] Address [address] [place] [address] Care Team Providers Care Supervisor Transcribing Operators Name Role Phone Yaquelin Luis MD Unavailable [phone] [place] Hand JANITOR AND CLEANER Primary Care Provider [phone] Allergies Active Allergy Reactions Criticality Noted Date [...] (09/13/2020): Added automatically from request for surgery [id number] Nasal turbinate hypertrophy 09/13/2020 Overview (09/13/2020): Added automatically from request for surgery [id number] Nasal septal deviation 09/13/2020 Overview (09/26/2020): Added automatically from request for surgery [id number] Adult general medical exam 10/19/2019 Iron deficiency anemia due to chronic blood loss 10/19/2019 Overview (04/06/2023): Last Assessment & Plan: Stable Cont ferrous sulfate Menorrhagia 07/21/2014 Assessment & Plan (05/15/2020 12:24 PM CDT): Persistent Will refer to Dr. Griffith Assessment & Plan (03/16/2020 4:34 AM CDT): Uncontrolled F/u with discharge specialist Resolved Problems Problem Noted Date Diagnosed Date [...] drink = 0.6 oz pur e alcohol) [facility] Utilities Answer Date Recorded In the past 12 months has [employer], gas, oil, or water [employer] threatened to shut off services in your [...] often do you attend chur ch or mormon services? Never 10/18/2024 Do you belong to any clubs o r organizations such as islam groups, unions, fraternal or athletic groups, or [...] any time in the past 12 m [facility], were you homeless or living in a detention (including now)? No 10/18/2024 Personal Safety Answer Date Recorded Have you ever been in or are you currently in a harmful physical or emotional relationship or is someone making you feel afraid or unsafe? Denies 10/15/2024 Comments No Sex and Gender Information Value Date Recorded Sex Assigned at Not on file Legal Sex Female 4:43 AM PUBLIC HEALTH REPRESENTATIVE Gender Identity Not on file Sexual Orientation [...] 73.5 kg (162 lb) 10/16/2024 5:11 AM PUBLIC HEALTH REPRESENTATIVE Height 160 cm (5' 3) 10/16/2024 5:11 AM PUBLIC HEALTH REPRESENTATIVE Body Mass Index 28.7 10/16/2024 5:11 AM PUBLIC HEALTH REPRESENTATIVE Plan of Treatment Health Maintenance Due Date [...] , 02/18/1995, 1995 [place] [address] [facility] PLAN [facility] PLAN PLAN Advance Directives For more information, please contact: [phone] * Full Code (Latest Code Status on File) Date Activated Date Inactivated Comments 10/16/2024 4:11 AM 10/20/2024 7:17 PM Care Teams Supervisor Transcribing Operators Relationship Specialty Start Date End Date [place] Hand NP [address] [facility] [address] [place] [address] PCP - General Family Medicine 10/18/24 Yaquelin Luis MD [address] [place] [address] Medical Oncologist/Lift Operator Hematology 09/28/20
--- OUTSIDE RECORDS SUMMARY | 2025-03-06 01:01 | XMS_ITS | Referral Summary ---
Author Organization [facility] Address [address] [place] [address] Care Team Providers Care Commercial Credit Officer Name Role Phone Yaquelin Luis MD Unavailable [place] Hand CLEARANCE REPRESENTATIVE Primary Care Provider [phone] Allergies Active Allergy Reactions Criticality Noted Date [...] (09/13/2020): Added automatically from request for surgery [id number] Nasal turbinate hypertrophy 09/13/2020 Overview (09/13/2020): Added automatically from request for surgery [id number] Nasal septal deviation 09/13/2020 Overview (09/26/2020): Added automatically from request for surgery [id number] Adult general medical exam 10/19/2019 Iron deficiency anemia due to chronic blood loss 10/19/2019 Overview (04/06/2023): Last Assessment & Plan: Stable Cont ferrous sulfate Menorrhagia 07/21/2014 Assessment & Plan (05/15/2020 12:24 PM CDT): Persistent Will refer to Dr. Griffith Assessment & Plan (03/16/2020 4:34 AM CDT): Uncontrolled F/u with obgyn hospitalist physician Resolved Problems Problem Noted Date Diagnosed Date [...] drink = 0.6 oz pur e alcohol) [facility] Utilities Answer Date Recorded In the past 12 months has [employer], [employer], oil, or water [employer] threatened to shut off services in your [...] often do you attend chur ch or confucianist services? Never 10/18/2024 Do you belong to any clubs o r organizations such as faith groups, unions, fraternal or athletic groups, or [...] any time in the past 12 m [facility], were you homeless or living in a [...] on file Legal Sex Female 4:43 AM MEDICAL LIBRARIAN Gender Identity Not on file Sexual Orientation [...] 73.5 kg (162 lb) 10/16/2024 5:11 AM MEDICAL LIBRARIAN Height 160 cm (5' 3) 10/16/2024 5:11 AM MEDICAL LIBRARIAN Body Mass Index 28.7 10/16/2024 5:11 AM MEDICAL LIBRARIAN Plan of Treatment Not on file Insurance MAIL RETURN E [address] [facility] PLAN [facility] PLAN [facility] PLAN Advance Directives For more information, please contact: [phone] * Full Code (Latest Code Status on File) Date Activated Date Inactivated Comments 10/16/2024 4:11 AM 10/20/2024 7:17 PM Care Teams Commercial Credit Officer Relationship Specialty Start Date End Date [place] Hand NP [address] [facility] [address] [place] [address] PCP - General Family Medicine 10/18/24 Yaquelin Luis MD [address] [place] [address] Medical Oncologist/Manager Port Hematology 09/28/20
--- OUTSIDE RECORDS SUMMARY | 2025-03-06 01:01 | XMS_ITS | Clinical Summary ---
Author Organization [facility] Address [address] [place] [address] Care Team Providers Care Social Secretary Name Role Phone None, Provider MD Primary [...] Date Allergic reaction 02/26/2024 Sickle cell crisis ([facility] 02/06/2024 Iron deficiency anemia, [...] drink = 0.6 oz pur e alcohol) [facility] Utilities Answer Date Recorded In the past 12 months has e [employer], gas, oil, or water [employer] threatened to shut off services in your [...] any time in the past 12 m [facility], were you homeless or living in a custodial (including now)? No 02/06/2024 Comments No Sex and Gender Information Value Date Recorded Sex Assigned at Not on file Legal Sex Female 10:15 PM CDT Gender Identity Not on file Sexual Orientation Not on file Last Filed Vital Signs Vital Sign Reading Time Taken Comments Blood Pressure 130/74 06/22/2024 6:08 AM SUPERVISOR FIBER LOCKING Pulse 89 06/22/2024 2:55 AM SUPERVISOR FIBER LOCKING Temperature 36.3 C (97.4 F) 06/22/2024 2:55 AM SUPERVISOR FIBER LOCKING Respiratory Rate 20 06/22/2024 2:55 AM SUPERVISOR FIBER LOCKING Oxygen Saturation 97% 06/22/2024 2:55 AM SUPERVISOR FIBER LOCKING Inhaled Oxygen Concentration - - Weight 73.9 kg (163 lb) 06/22/2024 2:55 AM SUPERVISOR FIBER LOCKING Height 160 cm (5' 3) 06/22/2024 2:55 AM SUPERVISOR FIBER LOCKING Body Mass Index 28.87 06/22/2024 2:55 AM SUPERVISOR FIBER LOCKING Plan of Treatment Health Maintenance Due Date [...] 3:59 AM 02/15/2019 3:59 AM Care Teams Social Secretary Relationship Specialty Start Date End Date None, Provider, PCP - General 02/14/19
[2025-03-06 01:05] LABS: Alanine Aminotransferase 16 U/L (6-35); Albumin Level 3.8 g/dL (3.5-5.1); Alkaline Phosphatase 74 U/L (38-126); Anion Gap 4 mmol/L (4-12); Aspartate Amino Transferase 28 U/L (14-36); Bilirubin,Total 0.7 mg/dL (0.2-1.3); Blood Urea Nitrogen 12 mg/dL (7-17); Calcium 8.4 mg/dL (8.4-10.2); Carbon Dioxide 26 mmol/L (22-30); Chloride 103 mmol/L (98-107); Estimated CRCL calculation 101 ml/min; Estimated Glomerular Filt Rate > 60; Glucose 87 mg/dL (65-110); Potassium 3.2 mmol/L (3.4-5.0); Sodium 133 mmol/L (137-145); Total Protein 7.1 g/dL (6.3-8.2)
[2025-03-06] MEDS: HYDROmorphone HCL INJ (*CRX) 2 MG/ML VIAL 1 MG IV PUSH (01:08)
[2025-03-06] MEDS: SODIUM CHLORIDE 0.9% IV 1,000 ML 999 ML IV CONT (01:09)
[2025-03-06] MEDS: KETOROLAC 15 MG/ML VIAL (*BKC) IV PUSH ×2 (02:16→07:30)
[2025-03-06] MEDS: dexAMETHasone SOD PHOS INJ 10 MG/ML 1 ML VIAL IV PUSH (02:16)
[2025-03-06] MEDS: AMPICILLIN SODIUM/SULBACTAM 3 GM in SODIUM CHLORIDE 0.9% IV 100 ML 200 ML IVPB ×2 (02:20→07:24)
[2025-03-06] MEDS: POTASSIUM CHLORIDE 20 MEQ PACKET (FOR LIQUID) 40 MEQ PO (03:32)
--- NOTE | 2025-03-06 06:29 | PC.NURSE ---
Gave update to [facility] transfer line. States no bed at [facility] as of yet.
--- NOTE | 2025-03-06 07:18 | PC.NURSE ---
Report to CAROLINE Ross.
== END 2025-03-06 09:05 | disposition short-term general hospital (02) ==
PROVIDERS: Emergency Provider Emergency Medicine
DX: K04.7 Periapical abscess without sinus (principal)
CPT/HCPCS: 36415; 70491; 80053; 85025; 85046; 96365; 96366; 96375; 99285; A9270; J0295; J1100; J1171; J1885; J7030; Q9967

== ENCOUNTER 2025-05-25 03:59 | Emergency (ER) | payer BC, SELFPAY ==
[2025-05-25 04:04] VITALS: BP 136/71; PULSE 91; RESP 18; TEMP 36.6; O2SAT 100
[2025-05-25] MEDS: HYDROmorphone HCL INJ (*CRX) 1 MG/ML SYR IV PUSH ×2 (05:15→08:50)
[2025-05-25] MEDS: SODIUM CHLORIDE 0.9% IV 1,000 ML 999 ML IV CONT (05:15)
[2025-05-25] MEDS: ONDANSETRON INJ 4 MG/2 ML VIAL IV PUSH (05:15)
--- NOTE | 2025-05-25 05:18 | ED.GENADULT ---
HPI - General Adult General Chief complaint: Unspecified <Cary Boone MD - Last Filed: 05/25/25 05:47> Stated complaint: sickle cell pain <Cary Boone MD - Last Filed: 05/25/25 05:47> Time Seen by Provider: 05/25/25 04:06 <Cary Boone MD - Last Filed: 05/25/25 05:47> History of Present Illness HPI narrative: Patient is a 29-year-old female who presents the emergency department this morning complaining of a sickle cell pain crisis. Patient states that she ran out of her Percocet and she took her last pill earlier in the day yesterday. States that she has pain to her bilateral upper and lower extremity. Denies any active chest pain or shortness of breath. Follows up with the venetian blind maker through a chest HS. Otherwise denies any additional symptoms or concerns. <Cary Boone MD - Last Filed: 05/25/25 05:47> Related Data Allergies/adverse reactions: Allergies Allergy/AdvReac Type Severity Reaction Status Date / Time dextran sulfate Allergy HIVES Verified 05/25/25 04:01 <Cary Boone MD - Last Filed: 05/25/25 05:47> Review of Systems Review of Systems: All systems are reviewed and are negative unless stated otherwise in the HPI. <Cary Boone MD - Last Filed: 05/25/25 05:47> FOR[facility]LY [facility] Social History Social History: Social History (Updated 05/25/25 @ 09:37 by Luann Henderson MD) Social History: Local Resident; resides in [place] <Cary Boone MD - Last Filed: 05/25/25 05:47> Exam Narrative: General: Alert, awake, afebrile, anxious. HEENT: PERRL, no rhinorrhea, no post nasal drip, oropharynx clear. Neck: Trachea midline, no JVD, no lymphadenopathy. Cardiovascular: Regular rate and rhythm, no murmurs, rubs or gallops, no peripheral edema. Respiratory: Clear to auscultation bilaterally, no tachypnea, no wheezing, no rhonchi, no rubs, no respiratory distress. Abdomen: Soft, nontender, nondistended, no rebound, no guarding, no peritoneal signs. Musculoskeletal: No joint swelling or deformity, normal muscle tone. Skin: No rashes or petechia, no signs of infection. Psychiatric: Alert and oriented, normal behavior and judgment for situation. Neurological: Alert and oriented to person, place, and time. Follows all commands. No focal deficits, speech is clear and fluent. <Cary Boone MD - Last Filed: 05/25/25 05:47> Course Course Emergency Course: Patient signed out to me pending reassessment. Labs show normal renal function. Isolated AST elevation. I did reassess patient at 7:00 a.m. at bedside. She had received 1 mg of Dilaudid followed by a smaller dose of 0.5 mg Dilaudid given how she had told Dr. Gregory your that she feels after getting high dose of Dilaudid. At bedside patient states that she is still having pain and confirms that Dilaudid often makes her feel strangely when she is discharged and leaves the hospital and she would prefer her home regimen of Percocet 10 mg. She also noted that she developed what felt like dental pain and is having some itching after the law did. She is occasionally rubbing her nose, 25 mg diphenhydramine are ordered in addition to small dose 15 mg ketorolac IV. Normocytic anemia stable from previous. She has an abnormal urinalysis although denies any dysuria, urgency, frequency or hematuria. Given the moderate squamous cells, I suspect a degree of contamination. I did look in her mouth and there does not appear to be an abscess although she has multiple broken teeth and poor dentition. Although there does not appear to be an overwhelming infection, reasonable to give antibiotic and urge follow-up outpatient. She notes that she has had issues with her teeth but this is often neglected secondary to her underlying sickle cell condition. She also notes that she has been losing teeth and attributes this to vitamin deficiency. First dose Augmentin given a.m. in the emergency department. UDS positive for opiates, a medication she is prescribed. test negative. Patient had been prescribed #20 Percocet in February 2025 to last 5 days. Patient is reassessed at 8:40 a.m.. Her arm pain is better and dental pain is better. She continues to have some pain in her legs. Will give another dose of 1 mg Dilaudid after shared decision making about how this makes her feel afterwards. Noted that I could only prescribe outpatient short course opiates. She believes that her upcoming follow-up appointment with her venetian blind maker is in mid to late June through what she believes is HS HS. She notes that it is in [place] at the cancer center. Reassessed and pain is 4/10; she considers this acceptable. Stable for DC. Upon prescribing in [facility], last filled opiates in October 2024 and only December 2024 muscle relaxer and gabapentin filled. <Luann Henderson MD - Last Filed: 05/25/25 09:40> Vital Signs Vital signs: Vital Signs Temperature 98 F 05/25/25 04:04 Pulse Rate 91 05/25/25 04:04 Respiratory Rate 18 05/25/25 04:04 Blood Pressure 136/71 05/25/25 04:04 Pulse Oximetry 100 05/25/25 04:04 Oxygen Delivery Room Air 05/25/25 04:04 Temperature 98 F 05/25/25 04:04 Pulse Rate 78 05/25/25 06:53 Respiratory Rate 18 05/25/25 06:53 Blood Pressure 127/79 05/25/25 06:53 Pulse Oximetry 98 05/25/25 06:53 Oxygen Delivery Room Air 05/25/25 04:04 <Cary Boone MD - Last Filed: 05/25/25 05:47> Vital Signs Temperature 98 F 05/25/25 04:04 Pulse Rate 91 05/25/25 04:04 Respiratory Rate 18 05/25/25 04:04 Blood Pressure 136/71 05/25/25 04:04 Pulse Oximetry 100 05/25/25 04:04 Oxygen Delivery Room Air 05/25/25 04:04 Temperature 98 F 05/25/25 04:04 Pulse Rate 78 05/25/25 06:53 Respiratory Rate 18 05/25/25 06:53 Blood Pressure 127/79 05/25/25 06:53 Pulse Oximetry 98 05/25/25 06:53 Oxygen Delivery Room Air 05/25/25 04:04 <Luann Henderson MD - Last Filed: 05/25/25 09:40> Medical Decision Making MDM Narrative Medical decision making narrative: The patient was evaluated by myself in the emergency department. History is obtained from patient who is an independent historian and physical exam was performed. External medical records were reviewed at this time. IV was established and pertinent tests were ordered. Patient was administered 1 L IV fluid bolus with normal saline, 4 mg IV Zofran 1 mg of IV Dilaudid. Laboratory results were obtained at this time and are currently pending. Differential diagnosis considerations include sickle cell pain crisis, dehydration, electrolyte derangements, acute viral syndrome. Comorbidities impacting this visit include history of sickle cell anemia. I have evaluated and discussed social determinants of health with the patient that could potentially impact subsequent diagnosis and treatment plans. Patient was signed out to AM ED physician pending remainder of the workup. <Cary Boone MD - Last Filed: 05/25/25 05:47> Vital Signs Vital Signs: Vital Signs Temperature 98 F 05/25/25 04:04 Pulse Rate 91 05/25/25 04:04 Respiratory Rate 18 05/25/25 04:04 Blood Pressure 136/71 05/25/25 04:04 Pulse Oximetry 100 05/25/25 04:04 Oxygen Delivery Room Air 05/25/25 04:04 Temperature 98 F 05/25/25 04:04 Pulse Rate 78 05/25/25 06:53 Respiratory Rate 18 05/25/25 06:53 Blood Pressure 127/79 05/25/25 06:53 Pulse Oximetry 98 05/25/25 06:53 Oxygen Delivery Room Air 05/25/25 04:04 <Cary Boone MD - Last Filed: 05/25/25 05:47> Vital Signs Temperature 98 F 05/25/25 04:04 Pulse Rate 91 05/25/25 04:04 Respiratory Rate 18 05/25/25 04:04 Blood Pressure 136/71 05/25/25 04:04 Pulse Oximetry 100 05/25/25 04:04 Oxygen Delivery Room Air 05/25/25 04:04 Temperature 98 F 05/25/25 04:04 Pulse Rate 78 05/25/25 06:53 Respiratory Rate 18 05/25/25 06:53 Blood Pressure 127/79 05/25/25 06:53 Pulse Oximetry 98 05/25/25 06:53 Oxygen Delivery Room Air 05/25/25 04:04 <Luann Henderson MD - Last Filed: 05/25/25 09:40> Lab Data Result diagrams: 05/25/25 05:25 05/25/25 05:25 <Cary Boone MD - Last Filed: 05/25/25 05:47> Labs: Lab Results 05/25/25 05/25/25 05/25/25 Range/Units 05:25 06:03 06:06 WBC 7.1 (4.5-10.0) K/mm3 RBC 4.16 L (4.2-5.4) M/mm3 Hgb 10.6 L (12.0-15.0) g/dL Hct 34.7 L (37.0-47.0) % MCV 83.4 (80-100) fl MCH 25.5 L (26-34) pg MCHC 30.5 L (32-36) g/dl RDW 14.0 (11.5-14.5) % Plt Count 350 (150-375) k/mm3 MPV 10.8 H (7.4-10.4) fl Immature Gran % (Auto) 0.1 (0-0.5) % Neut % (Auto) 52.5 (45.5-73.1) % Lymph % (Auto) 38.6 (18.3-44.2) % [place] % (Auto) 6.1 (2.6-8.5) % Eos % (Auto) 2.0 (0-4.4) % Baso % (Auto) 0.7 (0.2-1.2) % Lymph # (Auto) 2.74 (0.9-3.2) K/mm3 [place] # (Auto) 0.4 (0.1-0.6) K/mm3 Eos # (Auto) 0.1 (0-0.3) K/mm3 Baso # (Auto) 0.1 (0.0-0.1) K/mm3 Abs Immat Gran (auto) 0.01 (0.00-0.031) K/mm3 Absolute Neuts (auto) 3.7 (1.3-6.7) K/mm3 Absolute Nucleated RBC 0.000 (0.0-0.012) K/mm3 Nucleated RBC % 0.0 (0.0-0.2) % Absolute Retic 0.08 (0.02-0.10) 10^6/uL Percent Retic 1.88 (0.7-4.3) % Immature Retic Fraction 22.2 H (3.0-15.9) % Retic Hgb Content 24.6 L (28.2-36.6) pg PT 13.2 (11.1-14.7) Seconds INR 1.0 APTT 32.1 (22.3-36.8) Seconds Sodium 137 (137-145) mmol/L Potassium 3.9 (3.4-5.0) mmol/L Chloride 105 (98-107) mmol/L Carbon Dioxide 23 (22-30) mmol/L Anion Gap 9 (4-12) mmol/L BUN 11 (7-17) mg/dL Creatinine 0.67 L (0.7-1.0) mg/dL Estim Creat Clear Calc 105 ml/min Estimated GFR > 60 (59 - ) Glucose 86 (65-110) mg/dL Calcium 8.7 (8.4-10.2) mg/dL Magnesium 2.1 (1.6-2.3) mg/dL Total Bilirubin 0.6 (0.2-1.3) mg/dL AST 39 H (14-36) U/L ALT 19 (6-35) U/L Alkaline Phosphatase 66 (38-126) U/L Total Protein 7.7 (6.3-8.2) g/dL Albumin 4.3 (3.5-5.1) g/dL Urine Color Yellow (Yellow) Urine Appearance Cloudy H (Clear) Urine pH 6.0 (5.0-9.0) Ur Specific [place] 1.011 (1.001-1.035) Urine Protein Negative (Negative) mg/dL Urine Glucose (UA) Negative (Negative) mg/dL Urine Ketones Negative (Negative) mg/dL Ur Blood (Man) 1+ H (Negative) Urine Nitrate Negative (Negative) Urine Bilirubin Negative (Negative) Urine Urobilinogen 0.2 (<2.0) mg/dL Leukocyte Esterase Rfl Trace H (Negative) DANIEL/UL Urine RBC 3-5 H (0-2) /hpf Urine WBC 6-10 H (0-3) /hpf Ur Squamous Epith Cells Moderate (Few) /hpf Urine Bacteria 1+ H /hpf Urine Casts 0-2 POC Urine HCG, Qual Negative (Negative) Urine Opiates Screen Positive A (Negative) Urine Methadone Screen Negative (Negative) Ur Barbiturates Screen Negative (Negative) Ur Phencyclidine Scrn Negative (Negative) Ur Amphetamine Screen Negative (Negative) U Benzodiazepines Scrn Negative (Negative) Urine Cocaine Screen Negative (Negative) U Cannabinoids Screen Negative (Negative) <Cary Boone MD - Last Filed: 05/25/25 05:47> Lab Results 05/25/25 05/25/25 05/25/25 Range/Units 05:25 06:03 06:06 WBC 7.1 (4.5-10.0) K/mm3 RBC 4.16 L (4.2-5.4) M/mm3 Hgb 10.6 L (12.0-15.0) g/dL Hct 34.7 L (37.0-47.0) % MCV 83.4 (80-100) fl MCH 25.5 L (26-34) pg MCHC 30.5 L (32-36) g/dl RDW 14.0 (11.5-14.5) % Plt Count 350 (150-375) k/mm3 MPV 10.8 H (7.4-10.4) fl Immature Gran % (Auto) 0.1 (0-0.5) % Neut % (Auto) 52.5 (45.5-73.1) % Lymph % (Auto) 38.6 (18.3-44.2) % [place] % (Auto) 6.1 (2.6-8.5) % Eos % (Auto) 2.0 (0-4.4) % Baso % (Auto) 0.7 (0.2-1.2) % Lymph # (Auto) 2.74 (0.9-3.2) K/mm3 [place] # (Auto) 0.4 (0.1-0.6) K/mm3 Eos # (Auto) 0.1 (0-0.3) K/mm3 Baso # (Auto) 0.1 (0.0-0.1) K/mm3 Abs Immat Gran (auto) 0.01 (0.00-0.031) K/mm3 Absolute Neuts (auto) 3.7 (1.3-6.7) K/mm3 Absolute Nucleated RBC 0.000 (0.0-0.012) K/mm3 Nucleated RBC % 0.0 (0.0-0.2) % Absolute Retic 0.08 (0.02-0.10) 10^6/uL Percent Retic 1.88 (0.7-4.3) % Immature Retic Fraction 22.2 H (3.0-15.9) % Retic Hgb Content 24.6 L (28.2-36.6) pg PT 13.2 (11.1-14.7) Seconds INR 1.0 APTT 32.1 (22.3-36.8) Seconds Sodium 137 (137-145) mmol/L Potassium 3.9 (3.4-5.0) mmol/L Chloride 105 (98-107) mmol/L Carbon Dioxide 23 (22-30) mmol/L Anion Gap 9 (4-12) mmol/L BUN 11 (7-17) mg/dL Creatinine 0.67 L (0.7-1.0) mg/dL Estim Creat Clear Calc 105 ml/min Estimated GFR > 60 (59 - ) Glucose 86 (65-110) mg/dL Calcium 8.7 (8.4-10.2) mg/dL Magnesium 2.1 (1.6-2.3) mg/dL Total Bilirubin 0.6 (0.2-1.3) mg/dL AST 39 H (14-36) U/L ALT 19 (6-35) U/L Alkaline Phosphatase 66 (38-126) U/L Total Protein 7.7 (6.3-8.2) g/dL Albumin 4.3 (3.5-5.1) g/dL Urine Color Yellow (Yellow) Urine Appearance Cloudy H (Clear) Urine pH 6.0 (5.0-9.0) Ur Specific [place] 1.011 (1.001-1.035) Urine Protein Negative (Negative) mg/dL Urine Glucose (UA) Negative (Negative) mg/dL Urine Ketones Negative (Negative) mg/dL Ur Blood (Man) 1+ H (Negative) Urine Nitrate Negative (Negative) Urine Bilirubin Negative (Negative) Urine Urobilinogen 0.2 (<2.0) mg/dL Leukocyte Esterase Rfl Trace H (Negative) DANIEL/UL Urine RBC 3-5 H (0-2) /hpf Urine WBC 6-10 H (0-3) /hpf Ur Squamous Epith Cells Moderate (Few) /hpf Urine Bacteria 1+ H /hpf Urine Casts 0-2 POC Urine HCG, Qual Negative (Negative) Urine Opiates Screen Positive A (Negative) Urine Methadone Screen Negative (Negative) Ur Barbiturates Screen Negative (Negative) Ur Phencyclidine Scrn Negative (Negative) Ur Amphetamine Screen Negative (Negative) U Benzodiazepines Scrn Negative (Negative) Urine Cocaine Screen Negative (Negative) U Cannabinoids Screen Negative (Negative) <Luann Henderson MD - Last Filed: 05/25/25 09:40> Discharge Plan Discharge Clinical Impression: Sickle cell pain crisis, Elevated AST (SGOT), Normocytic anemia, Pain due to dental caries <Cary Boone MD - Last Filed: 05/25/25 05:47> Patient Disposition: Home <Cary Boone MD - Last Filed: 05/25/25 05:47> Condition: Stable <Cary Boone MD - Last Filed: 05/25/25 05:47> Instructions: Antibiotic Form, Sickle Cell Crisis (ED), Toothache (ED), Anemia (ED) <Cary Boone MD - Last Filed: 05/25/25 05:47> Additional Instructions: It is important that you keep your upcoming appointment with your venetian blind maker/oncologist. Call to see if you can get an earlier appointment since you are out of your baseline pain regimen. If you are in need of establishing with a new venetian blind maker/oncologist, the name of 1 is listed below. It is also important that you see a dentist. A list of local resources will be provided. In the interim, continue taking your course of antibiotics. You received your 1st dose in the emergency department. Return to the emergency department any new or worsening symptoms. <Cary Boone MD - Last Filed: 05/25/25 05:47> Patient Language: Occitan <Cary Boone MD - Last Filed: 05/25/25 05:47> Prescriptions: New oxycodone-acetaminophen [Percocet] 10-325 mg tablet 1 tablet PO Q6H PRN (Reason: pain) 5 Days Qty: 20 0RF amoxicillin-pot clavulanate 875-125 mg tablet 1 tablet PO Q12H 5 Days Qty: 10 0RF <Cary Boone MD - Last Filed: 05/25/25 05:47> Follow-up/Referrals: Kishore Chaney MD [Physician, Hematology] PHYSICIAN NOT ON STAFF,NONSTAFF [Primary Care Provider] <Cary Boone MD - Last Filed: 05/25/25 05:47> Stand Alone Forms: Work/School Release IP <Cary Boone MD - Last Filed: 05/25/25 05:47> Time of Disposition: 09:39 <Cary Boone MD - Last Filed: 05/25/25 05:47> 09:39 <Luann Henderson MD - Last Filed: 05/25/25 09:40>
[2025-05-25 05:37] LABS: Hematocrit 34.7 % (37.0-47.0); Hemoglobin 10.6 g/dL (12.0-15.0); Immature Granulocyte Percent A 0.1 % (0-0.5); Lymphocytes Absolute Auto 2.74 K/mm3 (0.9-3.2); Mean Corpuscular HGB Conc 30.5 g/dl (32-36); Mean Corpuscular Hemoglobin 25.5 pg (26-34); Mean Corpuscular Volume 83.4 fl (80-100); Nucleated Red Blood Cells Absolute Auto 0.000 K/mm3 (0.0-0.012); Nucleated Red Blood Cells Perc 0.0 % (0.0-0.2); Platelet Count Result 350 k/mm3 (150-375); Red Blood Count 4.16 M/mm3 (4.2-5.4); White Blood Count 7.1 K/mm3 (4.5-10.0)
[2025-05-25 05:49] LABS: Immature Reticulocyte Fraction 22.2 % (3.0-15.9); Reticulocyte Hemoglobin Conten 24.6 pg (28.2-36.6); Reticulocytes Absolute 0.08 10^6/uL (0.02-0.10)
[2025-05-25 05:53] LABS: INR 1.0; Prothrombin Time 13.2 Seconds (11.1-14.7)
[2025-05-25 05:54] LABS: Partial Thromboplastin Time 32.1 Seconds (22.3-36.8)
[2025-05-25 06:00] LABS: Alanine Aminotransferase 19 U/L (6-35); Albumin Level 4.3 g/dL (3.5-5.1); Alkaline Phosphatase 66 U/L (38-126); Anion Gap 9 mmol/L (4-12); Aspartate Amino Transferase 39 U/L (14-36); Bilirubin,Total 0.6 mg/dL (0.2-1.3); Blood Urea Nitrogen 11 mg/dL (7-17); Calcium 8.7 mg/dL (8.4-10.2); Carbon Dioxide 23 mmol/L (22-30); Chloride 105 mmol/L (98-107); Estimated CRCL calculation 105 ml/min; Estimated Glomerular Filt Rate > 60; Glucose 86 mg/dL (65-110); Magnesium 2.1 mg/dL (1.6-2.3); Potassium 3.9 mmol/L (3.4-5.0); Sodium 137 mmol/L (137-145); Total Protein 7.7 g/dL (6.3-8.2)
[2025-05-25] MEDS: HYDROmorphone HCL INJ (*CRX) 1 MG/ML SYR 0.5 MG IV PUSH (06:06)
[2025-05-25 06:08] LABS: BEDSIDEPREGUCG Negative (Negative)
[2025-05-25 06:17] LABS: Add Urine Microscopic? YES; Appearance Urine Cloudy (Clear); Glucose Urine UA Negative (Negative); Leukocyte Esterase Ur Trace LEU/UL (Negative); Nitrate Urine Negative (Negative); Non Pathogenic Casts 0-2; Specific Grav Ur 1.011 (1.001-1.035)
[2025-05-25 06:53] VITALS: BP 127/79; PULSE 78; RESP 18; O2SAT 98
[2025-05-25] MEDS: KETOROLAC 15 MG/ML VIAL (*BKC) IV PUSH (07:17)
[2025-05-25] MEDS: oxyCODONE/ACETAMINOPHEN (*CRX) 10-325 MG TABLET 1 TAB PO (07:18)
[2025-05-25 08:21] LABS: Cannabinoid Screen Urine Negative (Negative)
[2025-05-25 09:53] VITALS: BP 102/80; PULSE 85; RESP 17; O2SAT 96
== END 2025-05-25 09:49 | disposition home or self-care (01) ==
PROVIDERS: Emergency Medicine; Emergency Provider Student in an Organized Health Care Education/Training Program
DX: D57.00 Hb-SS disease with crisis, unspecified (principal); R74.01 Elevation of levels of liver transaminase levels; D64.9 Anemia, unspecified; K02.9 Dental caries, unspecified
CPT/HCPCS: 36415; 80053; 80307; 81001; 81025; 83735; 85025; 85046; 85610; 85730; 96361; 96374; 96375; 96376; 99284; A9270; J1171; J1200; J1885; J2405; J7030

== ENCOUNTER 2025-05-31 20:23 | Emergency (ER) | payer BC, SELFPAY ==
--- NOTE | ~2025-05-31 | XR_ITS ---
Examination: XR chest 1V portable Clinical History: Sickle cell Comparison: None Technique: Portable AP Findings: Heart size normal. Lungs clear. No acute bony abnormality. IMPRESSION: 1. No acute cardiopulmonary findings given portable technique. Reviewed, dictated and finalized at location R.
--- OUTSIDE RECORDS SUMMARY | 2025-05-31 20:25 | XMS_ITS | Clinical Summary ---
Author Organization [facility] Address [address] [place] [address] Care Team Providers Care Direct Sales Consultant Name Role Phone None, Provider MD Primary [...] Date Allergic reaction 02/26/2024 Sickle cell crisis 02/06/2024 Iron deficiency anemia, unspecified 10/19/2019 Overview [...] drink = 0.6 oz pur e alcohol) [facility] Utilities Answer Date Recorded In the past 12 months has e [employer], gas, oil, or water [employer] threatened to shut off services in your [...] any time in the past 12 m [facility], were you homeless or living in a custodial (including now)? No 02/06/2024 Comments No Sex and Gender Information Value Date Recorded Sex Assigned at Not on file Legal Sex Female 10:15 PM CDT Gender Identity Not on file Sexual Orientation Not on file Last Filed Vital Signs Vital Sign Reading Time Taken Comments Blood Pressure 130/74 06/22/2024 6:08 AM TECHNICAL SUPPORT DIRECTOR Pulse 89 06/22/2024 2:55 AM TECHNICAL SUPPORT DIRECTOR Temperature 36.3 C (97.4 F) 06/22/2024 2:55 AM TECHNICAL SUPPORT DIRECTOR Respiratory Rate 20 06/22/2024 2:55 AM TECHNICAL SUPPORT DIRECTOR Oxygen Saturation 97% 06/22/2024 2:55 AM TECHNICAL SUPPORT DIRECTOR Inhaled Oxygen Concentration - - Weight 73.9 kg (163 lb) 06/22/2024 2:55 AM TECHNICAL SUPPORT DIRECTOR Height 160 cm (5' 3) 06/22/2024 2:55 AM TECHNICAL SUPPORT DIRECTOR Body Mass Index 28.87 06/22/2024 2:55 AM TECHNICAL SUPPORT DIRECTOR Plan of Treatment Health Maintenance Due Date Last Done Comments Cervical Cancer Screening Pap Smear (Age 30 to 64) Every 3 Years 1994 Annual Physical 1997 Meningococcal B Vaccine (1 of 4 - Increased Risk) 2004 Meningococcal Vaccine (1 - Risk start 2-23 months series) 07/24/2009 05/29/2009 Hepatitis C 2012 Pneumococcal Vaccine: Pediatrics (0 to 5 Years) and At-Risk Patients (6 to 49 Years) (1 of 2 - PCV) 2013 DTaP, Tdap and Td Vaccines (7 - Td or Tdap) 05/29/2019 05/29/2009, 01/12/1999, 04/02/1996, Additional history exists HPV Vaccines (1 - 3-dose SCDM series) 2021 Cervical Cancer Screening Pap with HPV Testing (Age 30 to 64) Every 5 Years 2024 Cervical Cancer Screening with HPV 2024 COVID-19 Vaccine ( season) 2025 Influenza Adult (#1) 2025 07/21/2014 Hepatitis B Vaccines Completed 04/29/1995, 02/18/1995, 1994 Hepatitis A Vaccines Aged Out No long er eligible based on patient's age to complete this topic RSV Immunizations Under 20 Months Aged Out No longer eligible based on patient's age to complete this topic Goals Goal Patient Goal Type Associated Problems Recent Progress Patient-Stated? Author Discharge Patient/family verbalizes understanding regarding the need to set up PCP Lifestyle No Saumya Neely, CAROLINE Patient will return to prior living situation [...] 3:59 AM 02/15/2019 3:59 AM Care Teams Direct Sales Consultant Relationship Specialty Start Date End Date None, Provider, PCP - General 02/14/19
--- OUTSIDE RECORDS SUMMARY | 2025-05-31 20:25 | XMS_ITS | Clinical Summary ---
Author Organization [facility] Address [address] [place] [address] Phone Care Team Providers Care Staff Electronic Warfare Officer Name Role Phone Amari Salgado MD Unavailable [phone] Provider, Not On File Primary Care Provider [...] MG TabletIndicatio ns:Sickle cell disease without crisis Take 1 Tablet by mouth every 8 [...] Comments Blood Pressure 120/80 09/27/2024 1:00 PM RECORD PRESS OPERATOR Pulse 98 09/27/2024 1:00 PM RECORD PRESS OPERATOR Temperature 36.6 C (97.8 F) 09/27/2024 1:00 PM RECORD PRESS OPERATOR Respiratory Rate 18 09/27/2024 1:00 PM RECORD PRESS OPERATOR Oxygen Saturation 99% 09/27/2024 1:00 PM RECORD PRESS OPERATOR Inhaled Oxygen Concentration - - Weight 72.8 kg (160 lb 9.6 oz) 09/27/2024 1:00 P M RECORD PRESS OPERATOR Height 160 cm (5' 3) 09/27/2024 1:00 PM RECORD PRESS OPERATOR Body Mass Index 28.45 09/27/2024 1:00 PM RECORD PRESS OPERATOR Plan of Treatment Health Maintenance Due Date Last Done Comments Hepatitis C Virus (HCV) Screening 1994 Pneumococcal Immunization Combined (1 of 2 - PCV) 2013 Pap Smear 2015 Human Papillomavirus (HPV) Immunization (1 - 3-dose SCDM series) 2021 Cervical Cancer Screening (CCS) 2024 HPV/Cotest 2024 Influenza Immunization (#1) 2025 07/21/2014 SARS-COV-2 Immunization ( - season) 2025 Respiratory Syncytial Virus (RSV) Immunization (Adult) (1 - 1-dose 75+ series) 2069 Hepatitis B Immunization Completed 995, 02/18/1995, 1994 TdaP Immunization Completed 05/29/2009 Meningococcal Immunization (ACWY) Aged Out No longer eligible b ased on patient's age to complete this topic Rotavirus Immunization Aged Out No lo nger eligible based on patient's age to complete this topic Insurance [place] [id number] Care Teams Staff Electronic Warfare Officer Relationship Specialty Start Date End Date Provider, Not On File MA PCP - General 02/23/24 Amari Salgado MD [address] [place] [phone] Consulting Physician Oncology 02/13/24
--- OUTSIDE RECORDS SUMMARY | 2025-05-31 20:25 | XMS_ITS | Clinical Summary ---
Author Organization [facility] Address [address] [place] [address] Phone Care Team Providers Care Financial Foundations Associate Name Role Phone Unavailable Primary Care Provider Unavailabl e Allergies Active Allergy Reactions Criticality Noted Date Comments Iron Dextran Anaphylaxis High 03/06/2025 Medications ferrous sulfate 325 mg (65 mg iron) tablet Take 325 mg by mouth daily. Active oxyCODONE-aceta minophen (PERCOCET) 10-325 mg TabletIndicatio ns:Oral abscess Take 1 Tablet by mouth every 6 hours as needed for Pain, Severe. Max Daily Amount: 4 Tablets 20 Tablet 03/07/2025 7:17 PM CDT 5 Active naloxone (NARCAN) 4 mg/spray Exira, Non-Aerosol EMERGENCY USE ONLY: Administer 1 spray (4 mg) in one nostril one time. May repeat in alternating nostrils every 2-3 min until responsive or EMS arrives. 2 Each 3 03/07/2025 7:17 PM CDT Active Active Problems Problem Noted Date Diagnosed Date Oral abscess 03/06/2025 Sickle cell disease without crisis 03/06/2025 Dental infection 03/06/2025 Encounters Date Type Department Care Team Description 03/16/2025 External Device Data ST[facility] ABSTRACTION Provider, Abstract 03/15/2025 External Device Data ST[facility] ABSTRACTION Provider, Abstract 03/15/2025 External Device Data ST[facility] ABSTRACTION Provider, Abstract 03/08/2025 External Device Data ST[facility] ABSTRACTION Provider, Abstract 03/08/2025 External Device Data STL ABSTRACTION Provider, Abstract 03/08/2025 External Device Data STL ABSTRACTION Provider, Abstract 03/07/2025 3:51 PM CDT Anesthesia Event [facility] Operating Room [address] [place] [address] Tino Aleman DO Young, Christopher J, MD 03/07/2025 2:19 PM CDT - 03/07/2025 3:[address] [facility] Operating Room [address] [place] [address] Carlos Saucedo, DEAN TEETH MULTIPLE EXTRACTION 03/06/2025 10:01 AM CDT - 03/07/2025 7:26 PM CDT Hospital Encounter [facility] Neurosurgery [address] [place] [address] Ilan Hall MD Chinnasamy, Ramya, MD Oral abscess Discharge Disposition: Home or Self Care 03/06/2025 Travel from Last 3 Months Social History Tobacco Use Types Packs/Day Years Used Date Smoking Tobacco: Never Assessed Feeling Safe Answer Date Recorded Are you in a relationship wi th someone who hurts you emotionally and/or physically? No 03/06/2025 Food Insecurity Answer Date Recorded Patient needs follow up regardin 03/06/2025 Transportation Needs Answer Date Record ed Patient needs follow up regardin 03/06/2025 Utility Needs Answer Date Recorded Patient needs follow up regardin 03/06/2025 Comments Unknown Sex and Gender Information Value Date Recorded Sex Assigned at Not on file Legal Sex Female 2:48 AM CDT Gender Identity Not on file Sexual Orientation Not on file Last Filed Vital Signs Vital Sign Reading Time Taken Comments Blood Pressure 133/94 03/07/2025 5:32 PM CDT Pulse 91 03/07/2025 5:32 PM CDT Temperature 37.7 C (99.8 F) 03/07/2025 4:24 PM CDT Respiratory Rate 15 03/07/2025 5:32 PM CDT Oxygen Saturation 97% 03/07/2025 5:32 PM CDT Inhaled Oxygen Concentration - - Weight - - Height - - Body Mass Index - - Plan of Treatment Health Maintenance Due Date Last Done Comments DTAP/TDAP/TD VACCINES (1 - Tdap) 2013 HEPATITIS B VACCINES (1 of 3 - 19+ 3-dose series) 09/12 HPV/Cotest (21-29) 2015 HPV VACCINES (1 - 3-dose SCDM series) 2021 CERVICAL CANCER SCREENING 2024 HPV/Cotest (30-65) 2024 PAP SMEAR 2024 INFLUENZA VACCINE (#1) 2025 Procedures Procedure Name Priority Date/Time Associated Diagnosis Comments ANAEROBIC/AEROBIC CULTURE W GRAM STAIN Routine 03/07/2025 4:06 PM CDT MS ANES INSERT ENDOTRACHEAL AIRWAY Routine 03/07/2025 4:04 PM CDT ABSCESS INCISION AND DRAINAGE 03/07/2025 2:19 PM CDT TEETH MULTIPLE EXTRACTION 03/07/2025 2:19 PM CDT HCG QUALITATIVE, URINE Stat 8:31 AM CDT HEMOGLOBIN A1C Routine 03/06/2025 2:22 PM CDT COMPREHENSIVE METABOLIC PANEL Routine 03/06/2025 2:22 PM CDT CBC WITH DIFFERENTIAL Routine 03/06/2025 2:22 PM CDT XR PANOREX Routine 03/06/2025 11:01 AM CDT from Last 3 Months Results * ANAEROBIC/AEROBIC CULTURE W GRAM STAIN (03/07/2025 4:06 PM CDT) CULTURE 2+ or moderate Normal oral bruce LEXIS MCG/ML 03/12/2025 10:09 AM CDT [facility] GRAM STAIN 1+ (Rare or Occasional) Gram negative diplococci 03/12/2025 10:09 AM CDT [facility] GRAM STAIN 1+ (Rare or Occasional) Gram negative rods 03/12/2025 10:09 AM CDT [facility] GRAM STAIN 3+ (Moderate) Polymorphonuclear WBC 03/12/2025 10:09 AM CDT [facility] Abscess ENTIRE MAXILLA / Unknown Collection / Unknown 03/07/2025 4:06 PM CDT 03/07/2025 4:33 PM CDT Carlos Saucedo DMD MICROBIOLOGY - GENERA L ORDERABLES Final Result [facility]# [id number] [address] [place] [address] * MS ANES INSERT ENDOTRACHEAL AIRWAY (03/07/2025 4:04 PM CDT) Narrative Luigi Ho AA-C - 03/07/2025 4:04 PM CDT Luigi Ho AA-C 03/07/2025 4:04 PM Airway Date/Time: 03/07/2025 4:04 PM Location: OR Plan: routine intubation Patient Identity Confirmed by: Verbally with patient and armband Airway: not difficult Staffing Performed: CLIP WRAPPER/CAA Authorized by: Tino Aleman DO Performed by: Luigi Ho AA-C Indications and Patient Condition: Indications for Airway Management: Anesthesia Sedation Level: general anesthesia Preoxygenated: yes Patient Position: Sniffing Mask Difficulty Assessment: 0 - not attempted Plan to extubate at end of case: Yes Final Airway Details: Final Airway Type: Endotracheal airway ETT Cuffed: Yes Cuff Volume (mL): 6 Technique Used for Successful ETT Placement: Direct laryngoscopy Devices/Methods Used in Placement: Cricoid pressure and intubating stylet Blade Type: straight blade Blade Size: 2 Insertion Site: Oral ETT Size (mm): 7.0 Measured from: Teeth ETT to Teeth (cm): 21 Tube secured with: Tape Placement Verified by: auscultation, end tidal CO2 and chest rise Cormack-Lehane Classification: Grade I - full view of glottis Number of Attempts at Approach: 1 Additional Procedure Information: dentition unchanged and atraumatic Tino Aleman DO PROCEDURE/MINOR SURG ICAL ORDERABLES Final Result * (ABNORMAL) HCG QUALITATIVE, URINE (03/07/2025 8:31 AM CDT) HCG QUAL URINE Negative Negative 03/07/2025 9:02 AM CDT [facility] COLOR UA Yellow Pale to Dark Yellow 03/07/2025 9:02 AM CDT [facility] SERVICES - [facility] CLARITY UA Cloudy(A) Clear 03/07/2025 9:02 AM CDT [facility] - [facility] Urine URINE SPECIMEN OBTAINED BY CLEAN CATCH PROCEDURE / Unknown Collection / Unknown 03/07/2025 8:31 AM CDT 03/07/2025 8:40 AM CDT Guanako Ch MD URINE ORDERABLES Final Result [facility] [employer] SERVICES [facility] CLIA# [id number] [address] [facility] [place] [address] * (ABNORMAL) CBC WITH DIFFERENTIAL (03/06/2025 2:22 PM CDT) [facility] WBC 8.5 4.0 - 9.8 K/uL 03/06/2025 3:15 PM CDT [facility] SERVICES [facility] RBC 3.83(L) 3.90 - 4.90 M/uL 03/06/2025 3:15 PM CDT [facility] SERVICES [facility] HEMOGLOBIN 10.7(L) 11.8 - 14.8 g/dL 03/06/2025 3:15 PM CDT [facility] SERVICES [facility] HEMATOCRIT 33.8(L) 35.5 - 44.0 % 03/06/2025 3:15 PM CDT [facility] SERVICES [facility] MCV 88.3 82.0 - 99.0 fL 03/06/2025 3:15 PM CDT [employer] LABORATORY SERVICES [facility] MCH 27.9 27.2 - 32.6 pg 03/06/2025 3:15 PM CDT [facility] SERVICES [facility] MCHC 31.7 31.5 - 35.5 g/dL 03/06/2025 3:15 PM CDT [facility] SERVICES [facility] RDW 12.7 11.5 - 14.5 % 03/06/2025 3:15 PM CDT [employer] LABORATORY SERVICES - [facility] RDW-STDEV 40.8 37.1 - 48.7 fL 03/06/2025 3:15 PM CDT [employer] [facility]OR[facility]ORY SERVICES - [facility] PLATELETS 259 140 - 350 K/uL 03/06/2025 3:15 PM CDT [employer] [facility] SERVICES - [facility] MPV 11.7 9.3 - 12.4 fL 03/06/2025 3:15 PM CDT [employer] [facility]ORY SERVICES - [facility] NEUTROPHILS 91 % 03/06/2025 3:15 PM CDT [employer] [facility]ORY SERVICES - [facility] LYMPHOCYTES 7 % 03/06/2025 3:15 PM CDT [employer] [facility]ATORY SERVICES - [facility] MONOCYTES 2 % 03/06/2025 3:15 PM CDT [employer] LABORATORY SERVICES - [facility] EOSINOPHILS 0 % 03/06/2025 3:15 PM CDT [employer] LABORATORY SERVICES - . [facility] BASOPHILS 0 % 03/06/2025 3:15 PM CDT [employer] LABORATORY SERVICES - [facility] IMMATURE GRANULOCYTES 0 % 03/06/2025 3:15 PM CDT [employer]ORATORY SERVICES - [facility] NEUTROPHIL ABSOLUTE 7.73(H) 1.90 - 7.00 K/uL 03/06/2025 3:15 PM CDT [employer] LABORATORY SERVICES - . [facility] LYMPHOCYTE ABSOLUTE 0.55(L) 0.70 - 4.50 K/uL 03/06/2025 3:15 PM CDT [employer] LABORATORY SERVICES - . [facility] MONOCYTE ABSOLUTE 0.19 0.10 - 1.30 K/uL 03/06/2025 3:15 PM CDT [employer] LABORATORY SERVICES - . [facility] EOSINOPHIL ABSOLUTE 0.00 0.00 - 0.70 K/uL 03/06/2025 3:15 PM CDT [employer] LABORATORY SERVICES - . [facility] BASOPHILS ABSOLUTE 0.01 0.00 - 0.20 K/uL 03/06/2025 3:15 PM CDT [employer] LABORATORY SERVICES - . [facility] IMMATURE GRANULOCYTES ABSOLUTE 0.03 0.00 - 0.03 K/uL 03/06/2025 3:15 PM CDT [employer] LABORATORY SERVICES - [facility] Blood Venipuncture / Unknown 03/06/2025 2:22 PM CDT 03/06/2025 3:00 PM CDT Brandee Johnson PA-C HEMATOLOGY ORDERABLES Peggy l Result Performing Organization Address [facility]/ZIP Co de Phone Number [facility] [employer] [facility]# [id number] [facility] [place] [address] * HEMOGLOBIN A1C (03/06/2025 2:22 PM CDT) HEMOGLOBIN A1C 5.1 <5.7 % 03/07/2025 8:13 AM CDT [employer] LABORATORY SERVICES [facility] EST. AVG GLUCOSE, A1C 100 mg/dL 03/07/2025 8:13 AM CDT [employer] LABORATORY [facility] Blood Venipuncture / Unknown 03/06/2025 2:22 PM CDT 03/06/2025 3:00 PM CDT Narrative [facility] - 03/07/2025 8:13 AM CDT HGB A1C INTERPRETATION NORMAL: <5.7% PRE-DIABETES: 5.7 - 6.4% DIABETES: 6.5% OR GREATER Luda Roman MD CHEMISTRY ORDERABLES Final R esult Performing Organization Address [facility] Co de Phone Number [facility] [employer] [facility]# [id number] [address] [place] [address] * (ABNORMAL) COMPREHENSIVE METABOLIC PANEL (03/06/2025 2:22 PM CDT) SODIUM 137 136 - 145 mmol/L 03/06/2025 3:49 PM CDT [employer] LABORATORY SERVICES [facility] POTASSIUM 3.9 3.5 - 5.0 mmol/L 03/06/2025 3:49 PM CDT [employer] LABORATORY SERVICES [facility] CHLORIDE 103 98 - 107 mmol/L 03/06/2025 3:49 PM CDT [employer] LABORATORY SERVICES [facility] CO2 20(L) 22 - 29 mmol/L 03/06/2025 3:49 PM CDT [employer] [facility]ORATORY SERVICES - [facility] CALCIUM 9.0 8.6 - 10.2 mg/dL 03/06/2025 3:49 PM [facility]ORY SERVICES - [facility] BUN 8 6 - 20 mg/dL 03/06/2025 3:49 PM [facility] SERVICES - [facility] CREATININE 0.58 0.51 - 0.95 mg/dL 03/06/2025 3:49 PM [facility] SERVICES - [facility] GLUCOSE 203(H) 74 - 99 mg/dL 03/06/2025 3:49 PM [facility] SERVICES - [facility] TOTAL PROTEIN 7.1 6.7 - 8.6 g/dL 03/06/2025 3:49 PM [facility] SERVICES - [facility] ALBUMIN 3.9 3.5 - 5.2 g/dL 03/06/2025 3:49 PM [facility] SERVICES - [facility] BILIRUBIN TOTAL 0.5 0.0 - 1.2 mg/dL 03/06/2025 3:49 PM [facility]AT[facility] SERVICES - [facility] ALKALINE PHOSPHATASE 79 35 - 104 U/L 03/06/2025 3:49 PM [facility] SERVICES - [facility] AST 22 <33 U/L 03/06/2025 3:49 PM [facility] SERVICES - [facility] ALT 13 <34 U/L 03/06/2025 3:49 PM [facility] SERVICES - [facility] GFR >60 >=60 mL/min/1.7 3 sq meter 03/06/2025 3:49 PM [facility] SERVICES - [facility] Comment:eGFR calculated with 2020 CKD-EPI equation. Vegetarian diet, extremely high or low muscle mass, and may affect results. Cystatin C with Glomerular Filtration Rate is a suitable alternative for these patients. ANION GAP 14 8 - 16 mmol/L 03/06/2025 3:49 PM [facility] SERVICES [facility] Blood Venipuncture / Unknown 03/06/2025 2:22 PM CDT 03/06/2025 3:00 PM T [facility] LABORATORY SERVICES [facility] - 03/06/2025 3:49 PM CDT Samples containing indocyanine green cause interferences on Total and/or Direct Bilirubin and must not be measured. Brandee Johnson PA-C CHEMISTRY ORDERABLES Final Result [facility] SERVICES [facility] LAUREN# [id number] [address] [place] [address] * XR PANOREX (03/06/2025 11:01 AM CDT) Anatomical Region Laterality Modality Head Computed Radiogr aphy 03/06/2025 11:0 1 AM CDT Impressions 03/06/2025 2:24 PM CDT IMPRESSION: 1. Dental caries as described above without signs of dental abscess formation. DICTATION LOCATION: Location 4 Narrative 03/06/2025 2:24 PM CDT EXAMINATION: XR PANOREX HISTORY: Tooth Pain. See Reason for Exam FINDINGS: No prior study is available for comparison at the time of this dictation. Multiple teeth are absent and multiple dental restorations are present. There are dental caries involving the left maxillary lateral incisor and second premolar and the right maxillary second premolar. There may also be a dental caries involving the right mandibular lateral incisor. No periapical lucencies are seen to suggest dental abscess formation. Procedure Note Mel Maya MD - 03/06/2025 EXAMINATION: XR PANOREX HISTORY: Tooth Pain. See Reason for Exam FINDINGS: No prior study is available for comparison at the time of this dictation. Multiple teeth are absent and multiple dental restorations are present. There are dental caries involving the left maxillary lateral incisor and second premolar and the right maxillary second premolar. There may also be a dental caries involving the right mandibular lateral incisor. No periapical lucencies are seen to suggest dental abscess formation. IMPRESSION: 1. Dental caries as described above without signs of dental abscess formation. DICTATION LOCATION: Location 4 Brandee Johnson PA-C DIAGNOSTIC IMAGING ORDERAB LES Final Result from Last 3 Months Insurance [facility] [employer] Medicaid Advance Directives For more information, please contact: [phone] * Full Code (Latest Code Status on File) Date Activated Date Inactivated Comments 03/07/2025 2:47 PM 03/07/2025 9:31 PM * Full Code Date Activated Date Inactivated Comments 03/06/2025 10:18 AM 03/07/2025 2:47 PM
--- OUTSIDE RECORDS SUMMARY | 2025-05-31 20:25 | XMS_ITS | Clinical Summary ---
Author Organization [facility] Address [address] [place] [address] Care Team Providers Care Business Performance Advisor Name Role Phone Chantell Chung MD Primary Care Provider [phone] Source Comments [facility],non-owned Affiliates and Associated Physician Practices is amultiple site organization consisting of ambulatory clinics and hospital sitesin [place], [place], [place] and [place]. This disclosure is being madepursuant to the Care Everywhere program and may not contain all information available regarding this patient. 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 Not on file Not on file Last Filed Vital Signs Vital Sign Reading Time Taken Comments Blood Pressure 113/90 06/14/2020 1:00 AM CLIENT SALES AND SERVICE OFFICER Pulse 87 06/13/2020 10:23 PM CLIENT SALES AND SERVICE OFFICER Temperature 36.6 C (97.9 F) 06/13/2020 10:23 PM CLIENT SALES AND SERVICE OFFICER Respiratory Rate 18 06/13/2020 10:23 PM CLIENT SALES AND SERVICE OFFICER Oxygen Saturation 100% 06/14/2020 1:00 AM CLIENT SALES AND SERVICE OFFICER Inhaled Oxygen Concentration - - Weight 63.5 [...] VACCINE (1 - 3-dose SCDM series) 2021 DEPRESSION SCREENING 08/11/2024 COVID-19 VACCINE (1 - 2023-2 5 season) 2025 INFLUENZA VACCINE (#1) 2025 07/21/2014 ZOSTER VACCINE [...] topic Insurance [employer] [facility] [employer] [facility] [employer] [facility] [employer] [facility] Advance Directives * Full Code (Latest Code Status on File) Date Activated Date Inactivated Comments 04/10/2018 4:24 PM 04/11/2018 12:40 PM * Full Code Date Activated Date Inactivated Comments 04/10/2018 3:14 PM 04/10/2018 4:24 PM Care Teams Business Performance Advisor Relationship Specialty Start Date End Date Chantell Chung MD [id number] [address] PCP - General 06/19/20
--- OUTSIDE RECORDS SUMMARY | 2025-05-31 20:26 | XMS_ITS | Clinical Summary ---
Author Organization [facility] Address [address] [place] [address] Care Team Providers Care Rehab Services Aide Name Role Phone Yaquelin Luis MD Unavailable [phone] [facility] [employer] Primary Care Provider [phone] Allergies Active Allergy Reactions Criticality Noted Date [...] (09/13/2020): Added automatically from request for surgery [id number] Nasal turbinate hypertrophy 09/13/2020 Overview (09/13/2020): Added automatically from request for surgery [id number] Nasal septal deviation 09/13/2020 Overview (09/26/2020): Added automatically from request for surgery [id number] Adult general medical exam 10/19/2019 Iron deficiency anemia due to chronic blood loss 10/19/2019 Overview (04/06/2023): Last Assessment & Plan: Stable Cont ferrous sulfate Menorrhagia 07/21/2014 Assessment & Plan (05/15/2020 12:24 PM CDT): Persistent Will refer to Dr. Griffith Assessment & Plan (03/16/2020 4:34 AM CDT): Uncontrolled F/u with high risk case manager Resolved Problems Problem Noted Date Diagnosed Date [...] drink = 0.6 oz pur e alcohol) [facility] Utilities Answer Date Recorded In the past 12 months has [employer] electric, gas, oil, or water [employer] threatened to shut off services in your home? No 10/18/2024 Social Connection and Isolation Panel Answer Date Recorded In a typical week, [...] any clubs o r organizations such as taoist groups, unions, fraternal or athletic groups, or [...] any time in the past 12 [facility], were you homeless or living in a nursing home (including now)? No 10/18/2024 Personal Safety Answer Date Recorded Have you ever been in or are you currently in a harmful physical or emotional relationship or is someone making you feel afraid or unsafe? Denies 10/15/2024 Comments No Sex and Gender Information Value Date Recorded Sex Assigned at Not on file Legal Sex Female 4:43 AM DECORATOR STORE Gender Identity Not on file Sexual Orientation [...] 73.5 kg (162 lb) 10/16/2024 5:11 AM DECORATOR STORE Height 160 cm (5' 3) 10/16/2024 5:11 AM DECORATOR STORE Body Mass Index 28.7 10/16/2024 5:11 AM DECORATOR STORE Plan of Treatment Health Maintenance Due Date Last Done Comments Cervical Cancer Screening 1994 Hepatitis C Screening 1994 Meningococcal B Vaccine (1 o f 4 - Increased Risk) 2004 Varicella Vaccines (1 [...] , 02/18/1995, 1994 [place] [address] FORMERLY [facility] Advance Directives For more information, please contact: [phone] * Full Code (Latest Code Status on File) Date Activated Date Inactivated Comments 10/16/2024 4:11 AM 10/20/2024 7:17 PM Care Teams Rehab Services Aide Relationship Specialty Start Date End Date [facility] NP [address] [place] [address] PCP - General Family Medicine 10/18/24 Yaquelin Luis MD [address] [place] [address] Medical Oncologist/Food Checker Hematology 09/28/20
[2025-05-31 20:31] VITALS: BP 131/86; PULSE 98; RESP 16; TEMP 36.7; O2SAT 98
[2025-05-31 22:52] VITALS: BP 131/94; PULSE 88; RESP 18; O2SAT 100
[2025-05-31 23:10] LABS: Hematocrit 34.7 % (37.0-47.0); Hemoglobin 10.5 g/dL (12.0-15.0); Immature Granulocyte Percent A 0.2 % (0-0.5); Immature Reticulocyte Fraction 21.3 % (3.0-15.9); Lymphocytes Absolute Auto 2.64 K/mm3 (0.9-3.2); Mean Corpuscular HGB Conc 30.3 g/dl (32-36); Mean Corpuscular Hemoglobin 25.0 pg (26-34); Mean Corpuscular Volume 82.6 fl (80-100); Nucleated Red Blood Cells Absolute Auto 0.000 K/mm3 (0.0-0.012); Nucleated Red Blood Cells Perc 0.0 % (0.0-0.2); Platelet Count Result 411 k/mm3 (150-375); Red Blood Count 4.20 M/mm3 (4.2-5.4); Reticulocyte Hemoglobin Conten 23.9 pg (28.2-36.6); Reticulocytes Absolute 0.06 10^6/uL (0.02-0.10); White Blood Count 8.2 K/mm3 (4.5-10.0)
[2025-05-31 23:22] LABS: Alanine Aminotransferase 54 U/L (6-35); Albumin Level 4.4 g/dL (3.5-5.1); Alkaline Phosphatase 68 U/L (38-126); Anion Gap 11 mmol/L (4-12); Aspartate Amino Transferase 56 U/L (14-36); Bilirubin,Total 0.5 mg/dL (0.2-1.3); Blood Urea Nitrogen 14 mg/dL (7-17); Calcium 9.5 mg/dL (8.4-10.2); Carbon Dioxide 22 mmol/L (22-30); Chloride 104 mmol/L (98-107); Estimated CRCL calculation 91 ml/min; Estimated Glomerular Filt Rate > 60; Glucose 90 mg/dL (65-110); Potassium 4.0 mmol/L (3.4-5.0); Sodium 137 mmol/L (137-145); Total Protein 7.6 g/dL (6.3-8.2)
--- OUTSIDE RECORDS SUMMARY | 2025-05-31 23:23 | XMS_ITS | Clinical Summary ---
Author Organization [facility] Address [address], [facility] [address] [place] [address] Phone Care Team Providers Care Flooring Sales Manager Name Role Phone Amari Saglado MD Unavailable [phone] Provider, Not On File Primary Care Provider [...] Comments Blood Pressure 120/80 09/27/2024 1:00 PM TEACHER OF THE VISUALLY IMPAIRED Pulse 98 09/27/2024 1:00 PM TEACHER OF THE VISUALLY IMPAIRED Temperature 36.6 C (97.8 F) 09/27/2024 1:00 PM TEACHER OF THE VISUALLY IMPAIRED Respiratory Rate 18 09/27/2024 1:00 PM TEACHER OF THE VISUALLY IMPAIRED Oxygen Saturation 99% 09/27/2024 1:00 PM TEACHER OF THE VISUALLY IMPAIRED Inhaled Oxygen Concentration - - Weight 72.8 kg (160 lb 9.6 oz) 09/27/2024 1:00 P M TEACHER OF THE VISUALLY IMPAIRED Height 160 cm (5' 3) 09/27/2024 1:00 PM TEACHER OF THE VISUALLY IMPAIRED Body Mass Index 28.45 09/27/2024 1:00 PM TEACHER OF THE VISUALLY IMPAIRED Plan of Treatment Health Maintenance Due Date [...] Insurance [place] [id number] Care Teams Flooring Sales Manager Relationship Specialty Start Date End Date Provider, Not On File [place] PCP - General 02/23/24 Amari Salgado MD [address] [place] [phone] Consulting Physician Oncology 02/13/24
--- OUTSIDE RECORDS SUMMARY | 2025-05-31 23:23 | XMS_ITS | Clinical Summary ---
Author Organization [facility] Address [address] [place] [address] Care Team Providers Care Sew On Operator Name Role Phone Yaquelin Luis MD Unavailable [phone] [place] Hand HALL COORDINATOR Primary Care Provider [phone] Allergies Active Allergy Reactions Criticality Noted Date [...] (09/13/2020): Added automatically from request for surgery [id number] Nasal turbinate hypertrophy 09/13/2020 Overview (09/13/2020): Added automatically from request for surgery [id number] Nasal septal deviation 09/13/2020 Overview (09/26/2020): Added automatically from request for surgery [id number] Adult general medical exam 10/19/2019 Iron deficiency anemia due to chronic blood loss 10/19/2019 Overview (04/06/2023): Last Assessment & Plan: Stable Cont ferrous sulfate Menorrhagia 07/21/2014 Assessment & Plan (05/15/2020 12:24 PM CDT): Persistent Will refer to Dr. 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 threatened to shut off services in your [...] often do you attend chur ch or tenriism services? Never 10/18/2024 Do you belong to any clubs o r organizations such as protestant groups, unions, fraternal or athletic groups, or [...] any time in the past 12 m [facility], were you homeless or living in a correction (including now)? No 10/18/2024 Personal Safety Answer Date Recorded Have you ever been in or are you currently in a harmful physical or emotional relationship or is someone making you feel afraid or unsafe? Denies 10/15/2024 Comments No Sex and Gender Information Value Date Recorded Sex Assigned at Not on file Legal Sex Female 4:43 AM SECURITY SHIFT MANAGER Gender Identity Not on file Sexual Orientation [...] 73.5 kg (162 lb) 10/16/2024 5:11 AM SECURITY SHIFT MANAGER Height 160 cm (5' 3) 10/16/2024 5:11 AM SECURITY SHIFT MANAGER Body Mass Index 28.7 10/16/2024 5:11 AM SECURITY SHIFT MANAGER Plan of Treatment Health Maintenance Due Date [...] , 02/18/1995, 1994 [place] [address] [facility] PL[facility] Advance Directives For more information, please contact: [phone] * Full Code (Latest Code Status on File) Date Activated Date Inactivated Comments 10/16/2024 4:11 AM 10/20/2024 7:17 PM Care Teams Sew On Operator Relationship Specialty Start Date End Date [place] Hand NP [address] [place] [address] PCP - General Family Medicine 10/18/24 Yaquelin Luis MD [address] [place] [address] Medical Oncologist/Business Dean Hematology 09/28/20
--- OUTSIDE RECORDS SUMMARY | 2025-05-31 23:23 | XMS_ITS | Clinical Summary ---
Author Organization [facility] Address [address] [place] [address] Phone Care Team Providers Care Cut Off Tender Glass Name Role Phone Unavailable Primary Care Provider [...] CDT 5 Active naloxone (NARCAN) 4 mg/spray [place], Non-Aerosol EMERGENCY USE ONLY: Administer 1 spray [...] Abstract 03/07/2025 3:51 PM CDT Anesthesia Event [facility] Operating Room [address] [place] [address] iTno Aleman DO Young, Christopher J, MD 03/07/2025 2:19 PM CDT - 03/07/2025 3:49 PM CDT Surgery [facility] Operating Room [address] [place] [address] Carlos Saucedo, DEAN TEETH MULTIPLE EXTRACTION 03/06/2025 10:01 AM CDT - 03/07/2025 7:26 PM CDT Hospital Encounter [facility] Neurosurgery [address] [place] [address] Ilan Hall MD Chinnasamy, Ramya, MD Oral [...] GRAM STAIN Routine 03/07/2025 4:06 PM CDT IA ANES INSERT ENDOTRACHEAL AIRWAY Routine 03/07/2025 4:04 [...] bruce LEXIS MCG/ML 03/12/2025 10:09 AM CDT [facility] GRAM STAIN 1+ (Rare or Occasional) Gram negative diplococci 03/12/2025 10:09 AM CDT [facility] GRAM STAIN 1+ (Rare or Occasional) Gram negative rods 03/12/2025 10:09 AM CDT [facility] GRAM STAIN 3+ (Moderate) Polymorphonuclear WBC 03/12/2025 10:09 AM CDT [facility] Abscess ENTIRE MAXILLA / Unknown Collection / Unknown 03/07/2025 4:06 PM CDT 03/07/2025 4:33 PM CDT Carlos Saucedo DMD MICROBIOLOGY - GENERA L ORDERABLES Final Result [facility]# [id number] [address] [place] [address] * IA ANES INSERT ENDOTRACHEAL AIRWAY (03/07/2025 4:04 PM CDT) Narrative Luigi Ho AA-C - 03/07/2025 4:04 PM CDT Luigi Ho AA-C 03/07/2025 4:04 PM Airway Date/Time: 03/07/2025 4:04 PM Location: OR Plan: routine intubation Patient Identity Confirmed by: Verbally with patient and armband Airway: not difficult Staffing Performed: MEDICAL DOCTOR NUCLEAR MEDICINE/CAA Authorized by: Tino Aleman DO Performed by: [...] URINE Negative Negative 03/07/2025 9:02 AM CDT [facility] COLOR UA Yellow Pale to Dark Yellow 03/07/2025 9:02 AM CDT [facility] CLARITY UA Cloudy(A) Clear 03/07/2025 9:02 AM CDT [facility] Urine URINE SPECIMEN OBTAINED BY CLEAN CATCH PROCEDURE / Unknown Collection / Unknown 03/07/2025 8:31 AM CDT 03/07/2025 8:40 AM CDT Guanako Ch MD URINE ORDERABLES Final Result [facility] CLIA# [id number] [address] [facility] [place] [address] * (ABNORMAL) CBC WITH DIFFERENTIAL (03/06/2025 2:22 PM CDT) [facility] WBC 8.5 4.0 - 9.8 K/uL 03/06/2025 3:15 PM CDT [facility] RBC 3.83(L) 3.90 - 4.90 M/uL 03/06/2025 3:15 PM CDT [facility] HEMOGLOBIN 10.7(L) 11.8 - 14.8 g/dL 03/06/2025 3:15 PM CDT [facility] HEMATOCRIT 33.8(L) 35.5 - 44.0 % 03/06/2025 3:15 PM CDT [facility] MCV 88.3 82.0 - 99.0 fL 03/06/2025 3:15 PM CDT [facility] MCH 27.9 27.2 - 32.6 pg 03/06/2025 3:15 PM CDT [facility] MCHC 31.7 31.5 - 35.5 g/dL 03/06/2025 3:15 PM CDT [facility] RDW 12.7 11.5 - 14.5 % 03/06/2025 3:15 PM CDT [facility] - [facility] RDW-STDEV 40.8 37.1 - 48.7 fL 03/06/2025 3:15 PM CDT [facility] PLATELETS 259 140 - 350 K/uL 03/06/2025 3:15 PM CDT [facility] MPV 11.7 9.3 - 12.4 fL 03/06/2025 3:15 PM CDT [facility] NEUTROPHILS 91 % 03/06/2025 3:15 PM CDT [facility] LYMPHOCYTES 7 % 03/06/2025 3:15 PM CDT [facility] - [facility] MONOCYTES 2 % 03/06/2025 3:15 PM CDT [facility] - [facility] EOSINOPHILS 0 % 03/06/2025 3:15 PM CDT [facility] - [facility] BASOPHILS 0 % 03/06/2025 3:15 PM CDT [facility] - . [facility] IMMATURE GRANULOCYTES 0 % 03/06/2025 3:15 PM CDT [facility] NEUTROPHIL ABSOLUTE 7.73(H) 1.90 - 7.00 K/uL 03/06/2025 3:15 PM CDT [facility] - . [facility] LYMPHOCYTE ABSOLUTE 0.55(L) 0.70 - 4.50 K/uL 03/06/2025 3:15 PM CDT [facility] - . [facility] MONOCYTE ABSOLUTE 0.19 0.10 - 1.30 K/uL 03/06/2025 3:15 PM CDT [facility] - . [facility] EOSINOPHIL ABSOLUTE 0.00 0.00 - 0.70 K/uL 03/06/2025 3:15 PM CDT [facility] - . [facility] BASOPHILS ABSOLUTE 0.01 0.00 - 0.20 K/uL 03/06/2025 3:15 PM CDT [facility] - . [facility] IMMATURE GRANULOCYTES ABSOLUTE 0.03 0.00 - 0.03 K/uL 03/06/2025 3:15 PM CDT [facility] - [facility] Blood Venipuncture / Unknown 03/06/2025 2:22 PM CDT 03/06/2025 3:00 PM CDT Brandee Johnson PA-C HEMATOLOGY ORDERABLES Peggy l Result Performing Organization Address [facility]/ZIP Co de Phone Number [facility]# [id number] [facility] [place] [address] [place] [address] * HEMOGLOBIN A1C (03/06/2025 2:22 PM CDT) HEMOGLOBIN A1C 5.1 <5.7 % 03/07/2025 8:13 AM CDT [facility] EST. AVG GLUCOSE, A1C 100 mg/dL 03/07/2025 8:13 AM CDT [facility] Blood Venipuncture / Unknown 03/06/2025 2:22 PM CDT 03/06/2025 3:00 PM CDT Narrative [facility] - 03/07/2025 8:13 AM CDT HGB A1C INTERPRETATION NORMAL: <5.7% PRE-DIABETES: 5.7 - 6.4% DIABETES: 6.5% OR GREATER Luda Roman MD CHEMISTRY ORDERABLES Final R esult Performing Organization Address [facility] Co de Phone Number [facility]# [id number] [address] [place] [address] * (ABNORMAL) COMPREHENSIVE METABOLIC PANEL (03/06/2025 2:22 PM CDT) SODIUM 137 136 - 145 mmol/L 03/06/2025 3:49 PM CDT [facility] POTASSIUM 3.9 3.5 - 5.0 mmol/L 03/06/2025 3:49 PM CDT [facility] CHLORIDE 103 98 - 107 mmol/L 03/06/2025 3:49 PM CDT [facility] CO2 20(L) 22 - 29 mmol/L 03/06/2025 3:49 PM CDT [facility] CALCIUM 9.0 8.6 - 10.2 mg/dL 03/06/2025 3:49 PM [facility] - [facility] BUN 8 6 - 20 mg/dL 03/06/2025 3:49 PM [facility] CREATININE 0.58 0.51 - 0.95 mg/dL 03/06/2025 3:49 PM [facility] GLUCOSE 203(H) 74 - 99 mg/dL 03/06/2025 3:49 PM [facility] - [facility] TOTAL PROTEIN 7.1 6.7 - 8.6 g/dL 03/06/2025 3:49 PM [facility] - [facility] ALBUMIN 3.9 3.5 - 5.2 g/dL 03/06/2025 3:49 PM [facility] - [facility] BILIRUBIN TOTAL 0.5 0.0 - 1.2 mg/dL 03/06/2025 3:49 PM [facility] - [facility] ALKALINE PHOSPHATASE 79 35 - 104 U/L 03/06/2025 3:49 PM [facility] AST 22 <33 U/L 03/06/2025 3:49 PM [facility] ALT 13 <34 U/L 03/06/2025 3:49 PM [facility] GFR >60 >=60 mL/min/1.7 3 sq meter 03/06/2025 3:49 PM [facility] Comment:eGFR calculated with 2020 CKD-EPI equation. Vegetarian diet, extremely high or low muscle mass, and may affect results. Cystatin C with Glomerular Filtration Rate is a suitable alternative for these patients. ANION GAP 14 8 - 16 mmol/L 03/06/2025 3:49 PM [facility] Blood Venipuncture / Unknown 03/06/2025 2:22 PM CDT 03/06/2025 3:00 PM T [facility] - 03/06/2025 3:49 PM CDT Samples containing indocyanine green cause interferences on Total and/or Direct Bilirubin and must not be measured. Brandee Johnson PA-C CHEMISTRY ORDERABLES Final Result [facility] LAUREN# [id number] [address] [place] [address] * XR PANOREX (03/06/2025 11:01 AM CDT) [...] Final Result from Last 3 Months Insurance [facility] [employer] Medicaid Advance Directives For more information, please contact: [phone] * Full Code (Latest Code Status on File) Date Activated Date Inactivated Comments 03/07/2025 2:47 PM 03/07/2025 9:31 PM * Full Code Date Activated Date Inactivated Comments 03/06/2025 10:18 AM 03/07/2025 2:47 PM
--- OUTSIDE RECORDS SUMMARY | 2025-05-31 23:23 | XMS_ITS | Clinical Summary ---
Author Organization [facility] Address [address] [place] [address] Care Team Providers Care Ladderman Name Role Phone None, Provider MD Primary [...] drink = 0.6 oz pur e alcohol) [facility] Utilities Answer Date Recorded In the past 12 months has [employer], gas, oil, or water [employer] threatened to shut off services in your [...] any time in the past 12 m [facility], were you homeless or living in a detention (including now)? No 02/06/2024 Comments No Sex and Gender Information Value Date Recorded Sex Assigned at Not on file Legal Sex Female 10:15 PM CDT Gender Identity Not on file Sexual Orientation Not on file Last Filed Vital Signs Vital Sign Reading Time Taken Comments Blood Pressure 130/74 06/22/2024 6:08 AM SECONDARY SCHOOL TEACHER LIBRARIAN Pulse 89 06/22/2024 2:55 AM SECONDARY SCHOOL TEACHER LIBRARIAN Temperature 36.3 C (97.4 F) 06/22/2024 2:55 AM SECONDARY SCHOOL TEACHER LIBRARIAN Respiratory Rate 20 06/22/2024 2:55 AM SECONDARY SCHOOL TEACHER LIBRARIAN Oxygen Saturation 97% 06/22/2024 2:55 AM SECONDARY SCHOOL TEACHER LIBRARIAN Inhaled Oxygen Concentration - - Weight 73.9 kg (163 lb) 06/22/2024 2:55 AM SECONDARY SCHOOL TEACHER LIBRARIAN Height 160 cm (5' 3) 06/22/2024 2:55 AM SECONDARY SCHOOL TEACHER LIBRARIAN Body Mass Index 28.87 06/22/2024 2:55 AM SECONDARY SCHOOL TEACHER LIBRARIAN Plan of Treatment Health Maintenance Due Date [...] 3:59 AM 02/15/2019 3:59 AM Care Teams Ladderman Relationship Specialty Start Date End Date None, Provider, PCP - General 02/14/19
--- NOTE | 2025-05-31 23:36 | ED_ITS ---
HPI - Recheck/Abnormal Lab/Rx General Chief Complaint: Recheck/Abnormal Lab/Rx Stated Complaint: sickle cell crisis Time Seen by Provider: 05/31/25 22:50 History of Present Illness HPI narrative: 29-year-old female with history of sickle cell anemia presenting with what she states is a sickle cell crisis where she is having generalized bony pain in her arms and legs. Symptoms feel similar to last week when she had another exacerbation. She has otherwise been well controlled. Does not take any daily medications besides Percocet. Has an upcoming Hematology appointment in June. Denies any history of needing emergent transfusions or exchange transfusions. Does not take a blood thinner. Does not take hydroxyurea. She states she felt much better after her last ER visit but ran other pain medication she was prescribed and does not have an ability to get her appointment any time sooner. No chest pain or shortness of breath. No nausea, vomiting, fever, chills. No weakness or unilateral sensory or strength deficits. Was otherwise in her normal state of health. Related Data Allergies Allergy/AdvReac Type Severity Reaction Status Date / Time dextran sulfate Allergy HIVES Verified 05/31/25 22:53 Review of Systems 2 Review of Systems: As reviewed above in HPI [facility] Social History Social History Social History: Local Resident; resides in [place] Exam 2 Narrative: GENERAL: Well appearing not any acute distress. Has headphones on and using her phone without any apparent distress. HEAD: Normocephalic and atraumatic EYES: PERRLA ENT: Nares clear, no rhinorrhea or epistaxis. Mucous membranes moist. NECK: Supple. CHEST: Clear to auscultation, no respiratory distress, no wheezing or tachypnea HEART: Regular rate and rhythm. No murmur heard. Normal pulses ABDOMEN: [Soft, nondistended], [nontender], [No rigidity or guarding] EXTREMITIES: Normal range of motion. [No edema.] SKIN: Warm, dry, no rash. NEURO: [No focal deficits]. Alert and oriented [x3.] PSYCH: [Normal mood and affect.] Course Vital Signs Vital signs: Vital Signs Temperature 36.7 C 05/31/25 20:31 Pulse Rate 98 05/31/25 20:31 Respiratory Rate 16 05/31/25 20:31 Blood Pressure 131/86 05/31/25 20:31 Pulse Oximetry 98 05/31/25 20:31 Oxygen Delivery Room Air 05/31/25 20:31 Temperature 36.7 C 05/31/25 20:31 Pulse Rate 80 06/01/25 01:34 Respiratory Rate 20 06/01/25 01:34 Blood Pressure 130/87 06/01/25 01:34 Pulse Oximetry 100 06/01/25 01:34 Oxygen Delivery Room Air 05/31/25 20:31 MDM - Recheck/Abnormal Lab/Rx MDM Narrative Medical decision making narrative: 29-year-old female with history of sickle cell anemia presenting with what she states is a sickle cell crisis where she is having generalized bony pain in her arms and legs. Symptoms feel similar to last week when she had another exacerbation. She has otherwise been well controlled. Does not take any daily medications besides Percocet. Has an upcoming Hematology appointment in June. Denies any history of needing emergent transfusions or exchange transfusions. Does not take a blood thinner. Does not take hydroxyurea. She states she felt much better after her last ER visit but ran other pain medication she was prescribed and does not have an ability to get her appointment any time sooner. No chest pain or shortness of breath. No nausea, vomiting, fever, chills. No weakness or unilateral sensory or strength deficits. Was otherwise in her normal state of health. Patient is very well-appearing not any acute distress with normal vital signs. No tachycardia, fever, hypoxemia. Clear breath sounds. Low suspicion sickle cell emergency but given her complaints of pain crisis will obtain basic laboratory studies, chest x-ray, reticulocyte count. Given her dose of Dilaudid Toradol as well as Zofran fluids. Patient is asking for refill briefly for pain medications for home until she can see her percussion instrument repairer. Given that she has never been to this facility prior to these last 2 visits will obtain electrophoresis and sickle cell screen to confirm. Chest x-ray independently reviewed and interpreted by radiology with no focal consolidations effusions or pneumothorax. No cardiomegaly. No leukocytosis. Anemia of 10.5 at baseline. Normal coagulation panel. Electrolytes are unremarkable. Normal creatinine. Normal glucose. LFTs mildly elevated but have in the past. Negative test recently. Sickle cell screening test sent out to outside facility. Patient had significant improvement and resting comfortably, sleeping without any distress. Safe for discharge home. Will provide a brief refill until she can get to her percussion instrument repairer for further recommendations. Medical Records Attestation: I reviewed the patient's medical records. Lab Data Attestation: I reviewed the patient's lab results. 05/31/25 23:02 05/31/25 23:02 Labs: Lab Results 05/31/25 05/31/25 05/31/25 Range/Units 23:02 23:02 23:02 WBC 8.2 (4.5-10.0) K/mm3 RBC 4.20 (4.2-5.4) M/mm3 Hgb 10.5 L (12.0-15.0) g/dL Hct 34.7 L (37.0-47.0) % MCV 82.6 (80-100) fl MCH 25.0 L (26-34) pg MCHC 30.3 L (32-36) g/dl RDW 14.1 (11.5-14.5) % Plt Count 411 H (150-375) k/mm3 MPV 10.6 H (7.4-10.4) fl Immature Gran % (Auto) 0.2 (0-0.5) % Neut % (Auto) 57.6 (45.5-73.1) % Lymph % (Auto) 32.2 (18.3-44.2) % Dickson % (Auto) 7.7 (2.6-8.5) % Eos % (Auto) 1.6 (0-4.4) % Baso % (Auto) 0.7 (0.2-1.2) % Lymph # (Auto) 2.64 (0.9-3.2) K/mm3 Dickson # (Auto) 0.6 (0.1-0.6) K/mm3 Eos # (Auto) 0.1 (0-0.3) K/mm3 Baso # (Auto) 0.1 (0.0-0.1) K/mm3 Abs Immat Gran (auto) 0.02 (0.00-0.031) K/mm3 Absolute Neuts (auto) 4.7 (1.3-6.7) K/mm3 Absolute Nucleated RBC 0.000 (0.0-0.012) K/mm3 Nucleated RBC % 0.0 (0.0-0.2) % Absolute Retic 0.06 (0.02-0.10) 10^6/uL Percent Retic 1.52 (0.7-4.3) % Immature Retic Fraction 21.3 H (3.0-15.9) % Retic Hgb Content 23.9 L (28.2-36.6) pg Sickle Cell Screen Cancelled Hemoglobin A % Cancelled Hemoglobin A2 Quant Cancelled Hemoglobin C % Cancelled Hemoglobin E % Cancelled Hemoglobin F Percent Cancelled Hemoglobin S % Cancelled Hemoglobinopathy Red Blood Count Cancelled Hemoglobinopathy Hct Cancelled Hemoglobinopathy Hgb Cancelled Hemoglobinopathy MCV Cancelled Hemoglobinopathy MCH Cancelled Hemoglobinopathy RDW Cancelled Hemoglobinopathy Interp Cancelled PT 13.2 (11.1-14.7) Seconds INR 1.0 APTT 30.7 (22.3-36.8) Seconds Sodium 137 (137-145) mmol/L Potassium 4.0 (3.4-5.0) mmol/L Chloride 104 (98-107) mmol/L Carbon Dioxide 22 (22-30) mmol/L Anion Gap 11 (4-12) mmol/L BUN 14 (7-17) mg/dL Creatinine 0.79 (0.7-1.0) mg/dL Estim Creat Clear Calc 91 ml/min Estimated GFR > 60 (59 - ) Glucose 90 (65-110) mg/dL Calcium 9.5 (8.4-10.2) mg/dL Total Bilirubin 0.5 (0.2-1.3) mg/dL AST 56 H (14-36) U/L ALT 54 H (6-35) U/L Alkaline Phosphatase 68 (38-126) U/L Total Protein 7.6 (6.3-8.2) g/dL Albumin 4.4 (3.5-5.1) g/dL Ref Lab Test Name Pending Pending Ref Lab Test Result Pending Pending Blood Type A Positive Antibody Screen Negative ABG Data ABG results: 05/31/25 23:02 Hemoglobin Other Cancelled Hemoglobin Other 2 Cancelled Imaging Data Attestation: I personally reviewed and interpreted this imaging study as follows: My impression: No acute chest process Discharge Plan Discharge Clinical Impression: Sickle cell anemia with pain, Encounter for medication refill Patient Disposition: Home Condition: Stable Instructions: Antibiotic Form, Sickle Cell Disease (DC) Additional Instructions: All of your laboratory studies appear reassuring. No signs of infection. Imaging is normal. Will provide a brief refill until you can see your percussion instrument repairer. Return with emergent concerns otherwise follow-up with regular primary doctor. Patient Language: Lithuanian Prescriptions: New oxycodone-acetaminophen [Percocet] 10-325 mg tablet 1 tablet PO Q4H PRN (Reason: pain) Qty: 20 0RF No Action oxycodone-acetaminophen [Percocet] 10-325 mg tablet 1 tablet PO Q6H PRN (Reason: pain) 5 Days Qty: 20 0RF amoxicillin-pot clavulanate 875-125 mg tablet 1 tablet PO Q12H 5 Days Qty: 10 0RF Follow-up/Referrals: PHYSICIAN NOT ON STAFF,NONSTAFF [Primary Care Provider] Time of Disposition: 01:33
[2025-05-31 23:41] LABS: INR 1.0; Prothrombin Time 13.2 Seconds (11.1-14.7)
[2025-05-31 23:42] LABS: Partial Thromboplastin Time 30.7 Seconds (22.3-36.8)
[2025-05-31] MEDS: HYDROmorphone HCL INJ (*CRX) 1 MG/ML SYR 0.5 MG IV PUSH (23:45)
[2025-05-31] MEDS: ONDANSETRON INJ 4 MG/2 ML VIAL IV PUSH (23:45)
[2025-05-31] MEDS: SODIUM CHLORIDE 0.9% IV 1,000 ML 999 ML IV CONT (23:45)
[2025-05-31] MEDS: KETOROLAC 15 MG/ML VIAL (*BKC) IV PUSH (23:50)
[2025-06-01 01:34] VITALS: BP 130/87; PULSE 80; RESP 20; O2SAT 100
[2025-06-01] MEDS: oxyCODONE/ACETAMINOPHEN (*CRX) 10-325 MG TABLET 1 TAB PO (01:51)
== END 2025-06-01 01:54 | disposition home or self-care (01) ==
PROVIDERS: Emergency Provider Student in an Organized Health Care Education/Training Program
DX: D57.00 Hb-SS disease with crisis, unspecified (principal); Z76.0 Encounter for issue of repeat prescription
CPT/HCPCS: 36415; 71045; 80053; 83020; 85025; 85046; 85610; 85660; 85730; 86850; 86900; 86901; 96361; 96374; 96375; 99284; A9270; J1171; J1885; J2405; J7030

== ENCOUNTER 2025-06-09 23:34 | Emergency (ER) | payer BC, SELFPAY ==
--- OUTSIDE RECORDS SUMMARY | 2025-06-08 04:29 | XMS_ITS | Encounter Summary ---
Author Organization [facility] Address [address] [place] [address] Care Team Providers Care Medical Records Manager Name Role Phone Unavailable Primary Care Provider Unavailabl e Reason for Visit * Reason Comments Abscess Pt was here 3 months ago for a L tooth abscess + drainage, states they didn't pull one of the teeth and now reports pain + swelling is making it hard to breathe. Maintaining secretions/airway w/o difficulty in triage Sickle Cell Crisis Hx of sickle cell an d states she's having a crisis, reports full body pain for the past few hours. Took percocet COREMAKER MACHINE. Encounter Details Date Type Department Care Team (Late st Contact Info) Description 06/08/2025 4:29 AM CDT - 06/08/2025 5:16 AM CDT Emergency [facility] Emergency Department [address] [place] [address] Discharge Disposition: Left without being seen Social History Tobacco Use Types Packs/Day Years Used Date Smoking Tobacco: Never Tobacco Cessation:Counseling Given: Not Answered Alcohol Use Standard Drinks/Week Comments Yes 0 (1 standard drink = 0.6 oz pur e alcohol) occ Feeling Safe Answer Date Recorded Are you [...] on file Sexual Orientation Not on file documented as of this encounter Last Filed Vital Signs Vital Sign Reading Time Taken Comments Blood Pressure 122/88 06/08/2025 4:33 AM CDT Pulse 95 06/08/2025 4:33 AM CDT Temperature 36.7 C (98.1 F) 06/08/2025 4:33 AM CDT Respiratory Rate 18 06/08/2025 4:33 AM CDT Oxygen Saturation 99% 06/08/2025 4:33 AM CDT Inhaled Oxygen Concentration - - Weight 74.8 kg (165 lb) 06/08/2025 4:33 AM CDT Height 160 cm (5' 3) 06/08/2025 4:33 AM CDT Body Mass Index 29.23 06/08/2025 4:33 AM CDT documented in this encounter Medications at Time of Discharge oxyCODONE-acetam inophen (PERCOCET) 10-325 mg TabletIndication s:Oral abscess Take 1 Tablet by mouth every 6 hours as needed for Pain, Severe. Max Daily Amount: 4 Tablets 20 Tablet 03/07/2025 7:17 PM CDT 03/07/2025 naloxone (NARCAN) 4 mg/spray [place], Non-Aerosol EMERGENCY USE ONLY: Administer 1 spray (4 mg) in one nostril one time. May repeat in alternating nostrils every 2-3 min until responsive or EMS arrives. 2 Each 3 03/07/2025 7:17 PM CDT 03/07/2025 ferrous sulfate 325 mg (65 mg iron) tablet Take 325 mg by mouth daily. documented as of this encounter ED Notes * Carmelina Costa RN - 06/08/2025 5:15 AM CDT Pt up to desk requesting to leave at this time. Pt educated on risks of leaving without seeing a provider and benefits of treatment. Pt verbalizes understanding at this time. Pt ambulatory at discharge. documented in this encounter Plan of Treatment Not on file documented as of this encounter Visit Diagnoses Not on filedocumented in this encounter
--- OUTSIDE RECORDS SUMMARY | 2025-06-08 06:41 | XMS_ITS | Encounter Summary ---
Author Organization [facility] Address [address] [place] [address] Care Team Providers Care Rum Processing Operator Name Role Phone None, Physician Primary Care Provider Unavailabl e Reason for Visit * Reason Comments Sickle Cell Crisis Pt c/o bilateral leg pain x 2 days. Pt stated that she has bene taking her pain meds at home but she ran out. MEDICATION REFILL Pt stated that she r an out of her pain meds and needs a refill. Pain Dental Pt c/o dental pain t o upper left side of mouth x 2 days. Encounter Details Date Type Department Care Team (Late st Contact Info) Description 06/08/2025 6:41 AM CDT - 06/08/2025 7:53 AM CDT Emergency [facility] EM[facility]PART[facility] [address] [place] [id number] Rocael Guthrie MD [address] [place], [place] [address] Uncomplicated opioid dependence (HCC); Pain, dental Discharge Disposition: Home or Self Care Social History Tobacco Use Types Packs/Day Years Used Date Smoking Tobacco: Never Alcohol Use Standard Drinks/Week Comments No 0 (1 standard drink = 0.6 oz pur e alcohol) Comments No Sex and Gender Information Value Date Recorded Sex Assigned at Female 06/08/2025 7:22 AM CDT Legal Sex Female 5:38 AM PECAN MALLOW DIPPER Gender Identity Not on file Sexual Orientation Not on file 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 Industry Job 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 Job End 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 Not on file 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 Not on file Not on file documented as of this encounter Last Filed Vital Signs Vital Sign Reading Time Taken Comments Blood Pressure 118/88 06/08/2025 6:42 AM CDT Pulse 96 06/08/2025 6:47 AM CDT Temperature 36.7 C (98 F) 06/08/2025 5:38 AM CDT Respiratory Rate 18 06/08/2025 5:38 AM CDT Oxygen Saturation 100% 06/08/2025 6:47 AM CDT Inhaled Oxygen Concentration - - Weight 75.3 kg (166 lb) 06/08/2025 5:38 AM CDT Height 160 cm (5' 3) 06/08/2025 5:38 AM CDT Body Mass Index 29.41 06/08/2025 5:38 AM CDT documented in this encounter Functional Status documented as of this encounter Discharge Instructions * Discharge Instructions* Rocael Guthrie MD - 06/08/2025 7:14 AM CDT Your hemoglobin testing shows no sign of sickle cell anemia which is an inherited problem which would easily be identified on that testing. Reach out to your primary care physician or your hematology team to have repeat outpatient testing,etc. If you have worsening symptoms return to the ER. I've sent a prescription for an antibiotic to your pharmacy documented in this encounter Medications at Time of Discharge clindamycin (Cleocin) 300 MG capsule Take 1 (one) capsule by mouth 3 times daily for 7 days 21 capsule 06/08/2025 06/15/2025 ferrous sulfate EC (FERROUS SULFATE) 324 (65 FE) MG tablet Take 1 tablet by mouth 3 times daily 90 tablet 04/11/2018 norgestim-eth estrad triphasic (TRINESSA, 28,) tabletIndications :Anemia Take 1 Tab by mouth once daily. 07/21/2014 polyethylene glycol 3350 (MIRALAX) packet Take by mouth once daily. documented as of this encounter ED Notes * Rocael Guthrie MD - 06/08/2025 7:09 AM CDT Images from the original note were not included. [facility] ENCOUNTER HISTORICAL INFORMATION Primary Care Doctor: Physician None Patient information was obtained primarily from the patient, nursing notes, and outside hospital notes. History/Exam limitations: None Provider contact time: 6:54 AM I have personally seen, examined and been fully involved in the management of this patient with theresident. I confirm history, exam, assessment and plan Discussed. In addition I note: CHIEF COMPLAINT Sickle Cell Crisis (Pt c/o bilateral leg pain x 2 days. Pt stated that she has bene taking her painmeds at home but she ran out. ), MEDICATION REFILL (Pt stated that she ran out of her pain meds andneeds a refill. ), and Pain Dental (Pt c/o dental pain to upper left side of mouth x 2 days. ) HPI Evelio Steiner is a 29 year old female who presents to the ED with a headache, alleged dental abscess, dental pain, medication refill, leg pain, and alleged sickle cell crisis. Of note, patient had an electrophoresis in 2013 that was negative for sickle cell anemia, and an additional sickle cellanemia test earlier this year that was also negative. Patient states she takes dilaudid and percocet for her pain typically, and wishes to have her percocet refilled after taking her last one at midnight. Patient states she began having leg pain and a left sided headache at the same time, beginningwhile she was admitted to the hospital 2 days ago, as well as endorsing numbness in the bottom leftside of her face. Patient endorses the leg pain getting worse with cold and rainy weather. Pt further states she has a dental abscess on the upper left part of her mouth, which she has an appointmentto see a dentist for in June. Pt also endorses vision changes, stating that she has intermittently blurry vision, which is improved by sitting or laying down. Pt endorses having taken tylenol at 9 PM last night for her pain, states she takes 1000 mg every 6 hours. Patient denies any other substance use. Patient endorses being sexually active with her female partner, and denies using protection. PAST MEDICAL HISTORY Past Medical History[1] SURGICAL HISTORY Past Surgical History[2] CURRENT MEDICATIONS Medications[3] ALLERGIES Allergies[4] FAMILY HISTORY Family History[5] SOCIAL HISTORY Social History[6] REVIEW OF SYSTEMS Constitutional: Denies fever, chills, weight loss or weakness. Eyes: Denies photophobia or discharge. Endorses vision changes. HENT: Denies sore throat or ear pain. +Headache. +Dental pain. Respiratory: Denies cough or shortness of breath. Cardiovascular: Denies chest pain, palpitations or swelling. GI: Denies abdominal pain, nausea, vomiting, or diarrhea. Musculoskeletal: Denies back pain. +Leg pain. Skin: Denies rash. Neurologic: Denies headache, focal weakness or sensory changes. Endocrine: Denies polyuria or polydypsia. Lymphatic: Denies swollen glands. Psychiatric: Denies depression, suicidal ideation or homicidal ideation. See HPI for further details. All systems negative except as marked. PHYSICAL EXAM VITAL SIGNS: BP 118/88 Pulse 96 Temp 98 ??F (36.7 ??C) (Temporal) Resp 18 Ht 1.6 m (5' 3) Wt 75.3 kg (166 lb) SpO2 100% Constitutional: Well developed, Well nourished, No acute distress, Non-toxic appearance. HENT: Normocephalic, Atraumatic, Bilateral external ears normal, Oropharynx moist, No oral exudates, Nose normal. Eyes: PERRL, EOMI, Conjunctiva normal, No discharge. Normal eye exam. Neck- Normal range of motion, No tenderness, Supple, No stridor. Respiratory: Normal breath sounds, No respiratory distress. Lungs CTA bilaterally. Cardiovascular: Normal heart rate, Normal rhythm. Radial and Dorsal pulses 2+ bilaterally. GI: Bowel sounds normal, Soft, Tenderness to bilateral upper quadrants, no tenderness to the lower quadrants, No masses, No pulsatile masses. Musculoskeletal: Intact distal pulses, No edema, No tenderness, No cyanosis. Good range of motion in all major joints. No tenderness to palpation or major deformities noted. Back- No tenderness. Integument: Warm, Dry, No erythema, No rash. Neurologic: Alert & oriented x 3, No focal deficits noted. Diminished sensation in bilateral lower extremities. Diminished sensation in left mandible on palpation. Strength 4/5 on plantar and dorsal flexion bilaterally. Psychiatric: Affect normal, Judgment normal, Mood normal. PULSE OXIMETRY INTERPRETATION Saturation: 98% Oxygen Delivery: ra Interpretation: normal PROGRESS NOTES & MEDICAL DECISION MAKING 7:10 AM: Patient's chart states that she does not have sickle cell, per prior tests at outside hospital. All tests returned negative for sickle cell anemia. Her exam is reassuring -- she doesn't want testing and wants to leave now if she isn't getting analgesics. Differential diagnosis: Diagnostic considerations being considered including electrolyte disturbances, anemia, infection, medication effect, LEARNING CONSULTANT disease, myopathies, endocrine dyscrasias, among others ED COURSE AND RESULTS Amount and/or Complexity of Data Reviewed Triage notes and available nursing notes reviewed Decide to obtain previous medical records or to obtain history from someone other than the patient:yes, see HPI Review and summarize past medical records: yes Discuss the patient with other providers: yes FINAL IMPRESSION 1. Uncomplicated opioid dependence (HCC) 2. Pain, dental Patient was discharged. By signing my name below, I , José Mota, attest that this documentation has been prepared under the direction and in the presence of Dr. Guthrie. Signed: Pily Ray. Rocael Guthrie M.D. Emergency Medicine Physician [1] Past Medical History: Diagnosis Date Anemia Menorrhagia [2] Past Surgical History: Procedure Laterality Date Breast Biopsy Right 2012 benign [3] Current Outpatient Medications: clindamycin (Cleocin) 300 MG capsule, Take 1 (one) capsule by mouth 3 times daily for 7 days, Disp:21 capsule, Rfl: 0 ferrous sulfate EC (FERROUS SULFATE) 324 (65 FE) MG tablet, Take 1 tablet by mouth 3 times daily, Disp: 90 tablet, Rfl: 0 norgestim-eth estrad triphasic (TRINESSA, 28,) tablet, Take 1 Tab by mouth once daily., Disp: , Rfl: polyethylene glycol 3350 (MIRALAX) packet, Take by mouth once daily., Disp: , Rfl: [4] No Known Allergies [5] Family History Problem Relation Name Age of Onset Anemia Mother Hypertension Mother [6] Social History Socioeconomic History Marital status: Single Occupational History 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 Tobacco Use Smoking status: Never Substance and Sexual Activity Alcohol use: No Drug use: No Sexual activity: Never Other Topics Concern Service No Blood Transfusions Yes Comment: 2012 in march, May 25, 2014 Caffeine Concern No Occupational Exposure No Hobby Hazards No Sleep Concern No Stress Concern No Weight Concern No Special Diet No Back Care No Exercise Yes Bike Helmet No Comment: do not ride a bike Seat Belt Yes Self-Exams Yes Social History Narrative Jul 2015 Born in [facility] Currently in [place] Single, no kids Lives with parents Hobbies: basketball, fix phones * Sandhya Wiley RN - 06/08/2025 6:41 AM CDT Bed: AC24 Expected date: Expected time: Means of arrival: Comments: Zi Steiner documented in this encounter Miscellaneous Notes * Clinical References AVS - Rocael Guthrie MD - 06/08/2025 7:14 AM CDT [id number] Dental Pain Many things can cause dental pain. A crack or cavity in a tooth can cause tooth pain. This is because the crack or cavity exposes the sensitive inner area of the tooth. An infection in the gum or thetooth's root can also cause pain and swelling. The pain is often made worse when you have hot or cold food or drink. It can also be worse when you bite on hard foods. Pain may spread from the tooth to your ear, or to the part of the jaw on the same side. Other possible sources of tooth pain are: ? Broken tooth (tooth fracture). ? Damaged filling. ? Repeated movements, such as chewing, grinding, or clenching. Home care Follow these tips when caring for yourself at home: ? Don't have hot and cold foods and drinks. Your tooth may be sensitive to changes in temperature. ? Use toothpaste made for sensitive teeth. Baxter gently up and down instead of sideways. Brushing sideways can wear away root surfaces if they are exposed. ? If your tooth is chipped or cracked, see a dentist right away. ? Use a cold pack. Put a cold pack on your jaw over the sore area to help reduce swelling and pain. ? Ask your doctor about using [id number] medicine for pain, unless your doctor prescribed another medicine. If you have long-term (chronic) liver or kidney disease, talk with your doctor beforeusing acetaminophen or ibuprofen. Also talk with your doctor if you?ve had a stomach ulcer or gastrointestinal (GI) bleeding. ? Be aware of the signs of infection. If you have signs of an infection, you will be given an antibiotic. Take it as directed and finish all the medicine, even if you feel better, to be sure the infection has cleared. Follow-up care Follow up with your dentist as advised. Your pain may go away with the treatment given today. But only a dentist can fully check and treat the cause of your pain. This will keep the pain from coming back. Call 911 Call 911 if you have: ? Abnormal drowsiness or confusion. ? A headache or stiff neck. ? Weakness or fainting. ? Trouble swallowing or breathing. ? Vision problems. When to get medical advice Contact your doctor or get medical care right away if: ? Your face gets swollen or red. ? Pain gets worse or spreads to your neck. ? You have a fever of 100.4??F (38??C) or higher, or as directed by your doctor. ? Pus drains from the tooth. Last Reviewed Date: 2025 00:00:00 ?? [id number] [employer]. All rights reserved. This information is not intended as a substitute for professional medical care. Always follow your healthcare professional's instructions. documented in this encounter Plan of Treatment Not on file documented as of this encounter Visit Diagnoses Diagnosis Uncomplicated opioid dependence (HCC) Opioid type dependence, unspecified Pain, dental Unspecified disorder of the teeth and supporting structures documented in this encounter Active and Recently Administered Medications Times are shown in CDT. Scheduled Medication Order 06/06/2025 06/07/2025 06/08/2025 0.9% NaCl IV BOLUS 1,000 mL 1,000 mL, at 1,935.48 mL/hr, Administer over 31 Minutes, NOW, 1 dose, On Fri06/08/25 at 0630, Administer if no history of CHF or Renal Disease 0630 (Due) documented in this encounter Care Teams Rum Processing Operator Relationship Specialty Start Date End Date None, Physician PCP - General 06/08/25 documented as of this encounter
--- NOTE | ~2025-06-09 | CT_ITS ---
EXAMINATION: CT soft tissue neck w con DATE: 06/10/2025 03:42 INDICATION: Dental pain. TECHNIQUE: Computed tomography (CT) of the neck was performed with 75 mL Omnipaque-350 intravenous contrast. Automated exposure control and iterative reconstruction technique were employed. The dose-length product was 453.03 mGy-cm. COMPARISON: Neck CT 03/06/2025 FINDINGS: There are no pathologically enlarged lymph nodes. There is mild mucosal thickening in the paranasal sinuses. The mastoid air cells are normal. There are carious lesions of teeth 1 and 2. Tooth 4 is broken with periapical lucencies. There is a carious lesion of 6. There are periapical lucencies at tooth 8. Tooth 10 is broken with periapical lucencies. There is a carious lesion of tooth 11 with periapical lucencies. There is a carious lesion of tooth 13. IMPRESSION: 1. Dental disease. Reviewed, dictated and finalized at location E. IMPRESSION: 1. Dental disease.
--- OUTSIDE RECORDS SUMMARY | 2025-06-09 23:36 | XMS_ITS | Encounter Summary ---
Author Organization [facility] Address [address] Attn: Epic Prelude ADT [place] [address] Care Team Providers Care Census Clerk Name Role Phone Unavailable Primary Care Provider Unavailabl e Encounter Details Date Type Department Care Team (Latest Contact Info) Description 06/08/2025 Travel Social History Tobacco Use Types Packs/Day Years [...] on file documented as of this encounter Plan of Treatment Not on file documented as of this encounter Visit Diagnoses Not on filedocumented in this encounter
--- OUTSIDE RECORDS SUMMARY | 2025-06-09 23:36 | XMS_ITS | Clinical Summary ---
Author Organization [facility] Address [address] [place] [address] Phone Care Team Providers Care Electromedical Service Engineer Name Role Phone Unavailable Primary Care Provider [...] CDT 5 Active naloxone (NARCAN) 4 mg/spray [place], Non-Aerosol EMERGENCY USE ONLY: Administer 1 spray (4 mg) in one nostril one time. May repeat in alternating nostrils every 2-3 min until responsive or EMS arrives. 2 Each 3 03/07/2025 7:17 PM CDT 5 Active Active Problems Problem Noted Date Diagnosed Date Oral abscess 03/06/2025 Sickle cell disease without crisis 03/06/2025 Dental infection 03/06/2025 Encounters Date Type Department Care Team Description 06/08/2025 4:29 AM CDT - 06/08/2025 5:16 AM CDT Emergency [facility] Emergency Department [address] [place] [address] Discharge Disposition: Left without being seen 06/08/2025 Travel 03/16/2025 External Device Data STL ABSTRACTION Provider, Abstract 03/15/2025 External Device Data [place] ABSTRACTION Provider, Abstract 03/15/2025 External Device Data [place] ABSTRACTION Provider, Abstract from Last 3 Months Social History Tobacco [...] Mass Index 29.23 06/08/2025 4:33 AM CDT Plan of Treatment Health Maintenance Due Date Last Done Comments DTAP/TDAP/TD VACCINES (1 - Tdap) 2013 HEPATITIS B VACCINES (1 of 3 - 19+ 3-dose series) 09/12 HPV/Cotest (21-29) 2015 Preventative Visit-Managed Medicaid 01/26/202101/25 HPV VACCINES (1 - 3-dose SCDM series) 2021 CERVICAL CANCER SCREENING 2024 HPV/Cotest (30-65) 2024 PAP SMEAR 2024 INFLUENZA VACCINE (#1) 2025 07/21/2014 Insurance ON LICENSE OF [facility] PLAN NE RX PRIME THERAPEUTICS Medicaid Advance Directives For more information, please contact: [phone] * Full Code (Latest Code Status on File) Date Activated Date Inactivated Comments 03/07/2025 2:47 PM 03/07/2025 9:31 PM * Full Code Date Activated Date Inactivated Comments 03/06/2025 10:18 AM 03/07/2025 2:47 PM
--- OUTSIDE RECORDS SUMMARY | 2025-06-09 23:36 | XMS_ITS | Clinical Summary ---
Author Organization [facility] Address [address], [facility] [[email or web address] [address] [place] [address] Phone Care Team Providers Care Vehicle Body Sander Name Role Phone Amari Salgado MD Unavailable [phone] Provider, Not On File Primary Care Provider [...] Comments Blood Pressure 120/80 09/27/2024 1:00 PM PAINT ROLLER COVERMAKER Pulse 98 09/27/2024 1:00 PM PAINT ROLLER COVERMAKER Temperature 36.6 C (97.8 F) 09/27/2024 1:00 PM PAINT ROLLER COVERMAKER Respiratory Rate 18 09/27/2024 1:00 PM PAINT ROLLER COVERMAKER Oxygen Saturation 99% 09/27/2024 1:00 PM PAINT ROLLER COVERMAKER Inhaled Oxygen Concentration - - Weight 72.8 kg (160 lb 9.6 oz) 09/27/2024 1:00 P M PAINT ROLLER COVERMAKER Height 160 cm (5' 3) 09/27/2024 1:00 PM PAINT ROLLER COVERMAKER Body Mass Index 28.45 09/27/2024 1:00 PM PAINT ROLLER COVERMAKER Plan of Treatment Health Maintenance Due Date [...] Insurance [place] [id number] Care Teams Vehicle Body Sander Relationship Specialty Start Date End Date Provider, Not On File [place] PCP - General 02/23/24 Amari Salgado MD [address] [place] [phone] Consulting Physician Oncology 02/13/24
--- OUTSIDE RECORDS SUMMARY | 2025-06-09 23:37 | XMS_ITS | Clinical Summary ---
Author Organization [facility] Center Address [address] [place] [address] Care Team Providers Care Acquisition Cost Estimator Name Role Phone Yaquelin Luis MD Unavailable [phone] [place] [facility] TOOL DESIGN ENGINEER Primary Care Provider [phone] Allergies Active Allergy Reactions Criticality Noted Date [...] (09/13/2020): Added automatically from request for surgery [id number] Nasal turbinate hypertrophy 09/13/2020 Overview (09/13/2020): Added automatically from request for surgery [id number] Nasal septal deviation 09/13/2020 Overview (09/26/2020): Added automatically from request for surgery [id number] Adult general medical exam 10/19/2019 Iron deficiency anemia due to chronic blood loss 10/19/2019 Overview (04/06/2023): Last Assessment & Plan: Stable Cont ferrous sulfate Menorrhagia 07/21/2014 Assessment & Plan (05/15/2020 12:24 PM CDT): Persistent Will refer to Dr. 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 Never 10/18/2024 Do you belong to any clubs o r organizations such as amish groups, unions, fraternal or athletic groups, or [...] any time in the past 12 [facility], were you homeless or living in a assisted (including now)? No 10/18/2024 Personal Safety Answer Date Recorded Have you ever been in or are you currently in a harmful physical or emotional relationship or is someone making you feel afraid or unsafe? Denies 10/15/2024 Comments No Sex and Gender Information Value Date Recorded Sex Assigned at Not on file Legal Sex Female 4:43 AM SALES REPRESENTATIVE CASH REGISTERS Gender Identity Not on file Sexual Orientation [...] 73.5 kg (162 lb) 10/16/2024 5:11 AM SALES REPRESENTATIVE CASH REGISTERS Height 160 cm (5' 3) 10/16/2024 5:11 AM SALES REPRESENTATIVE CASH REGISTERS Body Mass Index 28.7 10/16/2024 5:11 AM SALES REPRESENTATIVE CASH REGISTERS Plan of Treatment Health Maintenance Due Date [...] , 02/18/1996, 1995 [place] [address] [facility] PL[facility] Advance Directives For more information, please contact: [phone] * Full Code (Latest Code Status on File) Date Activated Date Inactivated Comments 10/16/2024 4:11 AM 10/20/2024 7:17 PM Care Teams Acquisition Cost Estimator Relationship Specialty Start Date End Date [place] [facility] NP [address] [place] [address] PCP - General Family Medicine 10/18/24 Yaquelin Luis MD [address] [place] [address] Medical Oncologist/Coyote Hunter Hematology 09/28/20
--- OUTSIDE RECORDS SUMMARY | 2025-06-09 23:37 | XMS_ITS | Clinical Summary ---
Author Organization [facility] Address [address] [place] [address] Care Team Providers Care Jewelry Mold Maker Name Role Phone None, Provider MD Primary [...] drink = 0.6 oz pur e alcohol) [facility] Utilities Answer Date Recorded In the past 12 months has e [employer], gas, oil, or water [employer] threatened to shut off services in your [...] any time in the past 12 m [facility], were you homeless or living in a senior care (including now)? No 02/06/2024 Comments No Sex and Gender Information Value Date Recorded Sex Assigned at Not on file Legal Sex Female 10:15 PM CDT Gender Identity Not on file Sexual Orientation Not on file Last Filed Vital Signs Vital Sign Reading Time Taken Comments Blood Pressure 130/74 06/22/2024 6:08 AM CONTROLLED AREA CHECKER Pulse 89 06/22/2024 2:55 AM CONTROLLED AREA CHECKER Temperature 36.3 C (97.4 F) 06/22/2024 2:55 AM CONTROLLED AREA CHECKER Respiratory Rate 20 06/22/2024 2:55 AM CONTROLLED AREA CHECKER Oxygen Saturation 97% 06/22/2024 2:55 AM CONTROLLED AREA CHECKER Inhaled Oxygen Concentration - - Weight 73.9 kg (163 lb) 06/22/2024 2:55 AM CONTROLLED AREA CHECKER Height 160 cm (5' 3) 06/22/2024 2:55 AM CONTROLLED AREA CHECKER Body Mass Index 28.87 06/22/2024 2:55 AM CONTROLLED AREA CHECKER Plan of Treatment Health Maintenance Due Date [...] 3:59 AM 02/15/2019 3:59 AM Care Teams Jewelry Mold Maker Relationship Specialty Start Date End Date None, Provider, PCP - General 02/14/19
--- OUTSIDE RECORDS SUMMARY | 2025-06-09 23:37 | XMS_ITS | Encounter Summary ---
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
[2025-06-10 00:20] VITALS: BP 119/98; PULSE 88; RESP 16; TEMP 36.8; O2SAT 100
--- OUTSIDE RECORDS SUMMARY | 2025-06-10 00:28 | XMS_ITS | Clinical Summary ---
Author Organization [facility] Address [address], [facility] [address] [place] [address] Phone Care Team Providers Care Tumbler Plater Name Role Phone Amari Salgado MD Unavailable Provider, Not On File Primary Care Provider [...] Comments Blood Pressure 120/80 09/27/2024 1:00 PM THREAT ANALYST Pulse 98 09/27/2024 1:00 PM THREAT ANALYST Temperature 36.6 C (97.8 F) 09/27/2024 1:00 PM THREAT ANALYST Respiratory Rate 18 09/27/2024 1:00 PM THREAT ANALYST Oxygen Saturation 99% 09/27/2024 1:00 PM THREAT ANALYST Inhaled Oxygen Concentration - - Weight 72.8 kg (160 lb 9.6 oz) 09/27/2024 1:00 P M THREAT ANALYST Height 160 cm (5' 3) 09/27/2024 1:00 PM THREAT ANALYST Body Mass Index 28.45 09/27/2024 1:00 PM THREAT ANALYST Plan of Treatment Health Maintenance Due Date [...] Insurance [place] [id number] Care Teams Tumbler Plater Relationship Specialty Start Date End Date Provider, Not On File [place] PCP - General 02/23/24 Amari Salgado MD [address] [place] [phone] Consulting Physician Oncology 02/13/24
--- OUTSIDE RECORDS SUMMARY | 2025-06-10 00:28 | XMS_ITS | Clinical Summary ---
Author Organization [facility] Address [address] [place] [address] Care Team Providers Care Cleaner Industrial Name Role Phone None, Provider MD Primary [...] drink = 0.6 oz pur e alcohol) [facility] Utilities Answer Date Recorded In the past 12 months has e [employer], gas, oil, or water [employer] threatened to shut off services in your [...] any time in the past 12 m [facility], were you homeless or living in a halfway (including now)? No 02/06/2024 Comments No Sex and Gender Information Value Date Recorded Sex Assigned at Not on file Legal Sex Female 10:15 PM CDT Gender Identity Not on file Sexual Orientation Not on file Last Filed Vital Signs Vital Sign Reading Time Taken Comments Blood Pressure 130/74 06/22/2024 6:08 AM FACE HARDENER Pulse 89 06/22/2024 2:55 AM FACE HARDENER Temperature 36.3 C (97.4 F) 06/22/2024 2:55 AM FACE HARDENER Respiratory Rate 20 06/22/2024 2:55 AM FACE HARDENER Oxygen Saturation 97% 06/22/2024 2:55 AM FACE HARDENER Inhaled Oxygen Concentration - - Weight 73.9 kg (163 lb) 06/22/2024 2:55 AM FACE HARDENER Height 160 cm (5' 3) 06/22/2024 2:55 AM FACE HARDENER Body Mass Index 28.87 06/22/2024 2:55 AM FACE HARDENER Plan of Treatment Health Maintenance Due Date [...] 3:59 AM 02/15/2019 3:59 AM Care Teams Cleaner Industrial Relationship Specialty Start Date End Date None, Provider, PCP - General 02/14/19
--- OUTSIDE RECORDS SUMMARY | 2025-06-10 00:28 | XMS_ITS | Clinical Summary ---
Author Organization [facility]3] at [facility] Address [address] [place] [address] Care Team Providers Care Engagement Quality Consultant Name Role Phone Yaquelin Luis MD Unavailable [phone] [place] Hand WASH TANK TENDER Primary Care Provider [phone] Allergies Active Allergy Reactions Criticality Noted Date [...] (09/13/2020): Added automatically from request for surgery [id number] Nasal turbinate hypertrophy 09/13/2020 Overview (09/13/2020): Added automatically from request for surgery [id number] Nasal septal deviation 09/13/2020 Overview (09/26/2020): Added automatically from request for surgery [id number] Adult general medical exam 10/19/2019 Iron deficiency anemia due to chronic blood loss 10/19/2019 Overview (04/06/2023): Last Assessment & Plan: Stable Cont ferrous sulfate Menorrhagia 07/21/2014 Assessment & Plan (05/15/2020 12:24 PM CDT): Persistent Will refer to Dr. Griffith Assessment & Plan (03/16/2020 4:34 AM CDT): Uncontrolled F/u with conservation assistant Resolved Problems Problem Noted Date Diagnosed Date [...] drink = 0.6 oz pur e alcohol) [facility] Utilities Answer Date Recorded In the past 12 months has [employer], gas, oil, or water [employer] threatened to shut off services in your [...] often do you attend chur ch or zoroastrian services? Never 10/18/2024 Do you belong to any clubs o r organizations such as jew groups, unions, fraternal or athletic groups, or [...] any time in the past 12 m [facility], were you homeless or living in a intermediate (including now)? No 10/18/2024 Personal Safety Answer Date Recorded Have you ever been in or are you currently in a harmful physical or emotional relationship or is someone making you feel afraid or unsafe? Denies 10/15/2024 Comments No Sex and Gender Information Value Date Recorded Sex Assigned at Not on file Legal Sex Female 4:43 AM DIRECTOR OF WORKFORCE DEVELOPMENT Gender Identity Not on file Sexual Orientation [...] 73.5 kg (162 lb) 10/16/2024 5:11 AM DIRECTOR OF WORKFORCE DEVELOPMENT Height 160 cm (5' 3) 10/16/2024 5:11 AM DIRECTOR OF WORKFORCE DEVELOPMENT Body Mass Index 28.7 10/16/2024 5:11 AM DIRECTOR OF WORKFORCE DEVELOPMENT Plan of Treatment Health Maintenance Due Date [...] , 02/18[birth year]1995, 1995 [place] [address] FORMERLY [facility] Advance Directives For more information, please contact: [phone] * Full Code (Latest Code Status on File) Date Activated Date Inactivated Comments 10/16/2024 4:11 AM 10/20/2024 7:17 PM Care Teams Engagement Quality Consultant Relationship Specialty Start Date End Date [place] Hand NP [address] [place] [address] PCP - General Family Medicine 10/18/24 Yaquelin Luis MD [address] [place] [address] Medical Oncologist/Rotogravure Press Operator Hematology 09/28/20
--- OUTSIDE RECORDS SUMMARY | 2025-06-10 00:28 | XMS_ITS | Clinical Summary ---
Author Organization [facility] Address [address] [place] [address] Phone Care Team Providers Care Figure Skater Name Role Phone Unavailable Primary Care Provider [...] CDT 5 Active naloxone (NARCAN) 4 mg/spray Holly, Non-Aerosol EMERGENCY USE ONLY: Administer 1 spray [...] CDT - 06/08/2025 5:16 AM CDT Emergency [facility] Emergency Department [address] [place] [address] Discharge Disposition: Left without being [...] 2024 INFLUENZA VACCINE (#1) 2025 07/21/2014 Insurance [facility] PLAN [place] [facility] [employer] Medicaid Advance Directives For more information, please contact: [phone] * Full Code (Latest Code Status on File) Date Activated Date Inactivated Comments 03/07/2025 2:47 PM 03/07/2025 9:31 PM * Full Code Date Activated Date Inactivated Comments 03/06/2025 10:18 AM 03/07/2025 2:47 PM
--- OUTSIDE RECORDS SUMMARY | 2025-06-10 00:28 | XMS_ITS | Clinical Summary ---
Author Organization [facility] [employer] Address [address] [place] [address] Care Team Providers Care Dining Room Attendant Name Role Phone None, Physician Primary Care Provider Unavailabl e Source Comments [facility],non-owned Affiliates and Associated Physician Practices is amultiple site organization consisting of ambulatory clinics and hospital sitesin [place], [place], [place] and [place]. This disclosure is being madepursuant to the Care Everywhere program and may not contain all information available regarding this patient. Last updated 18.[facility] [employer] Allergies No known active allergies Medications * Be aware that medications may not be up to date on this document. Alwaysverify current medications with the patient. polyethylene glycol 3350 (MIRALAX) packet Take by mouth once daily. Active norgestim-eth estrad triphasic (TRINESSA, 28,) tabletIndicati ons:Anemia Take 1 Tab by mouth once daily. 4 Active ferrous sulfate EC (FERROUS SULFATE) 324 (65 FE) MG tablet Take 1 tablet by mouth 3 times daily 90 tablet 8 Active clindamycin (Cleocin) 300 MG capsule Take 1 (one) capsule by mouth 3 times daily for 7 days 21 capsule 5 06/15/20 25 Active clindamycin (Cleocin) 300 MG capsule Take 1 (one) capsule by mouth 3 times daily for 7 days 21 capsule 5 06/08/20 25 Discontinued Active Problems Problem Noted Date Diagnosed Date Anemia 07/21/2014 Menorrhagia 07/21/2014 Encounters Date Type Department Care Team Description 06/08/2025 6:41 AM CDT - 06/08/2025 7:53 AM CDT Emergency [facility] EMERGENCY DEPARTMENT [address] [place] [address] Rocael Guthrie MD Uncomplicated opioid dependence (HCC); Pain, dental Discharge Disposition: Home or Self Care 06/08/2025 Travel from Last 3 Months Immunizations Immunization Administration Dates Next Due INFLUENZA [...] AM CDT Legal Sex Female 5:38 AM SOLAR DESIGNER Gender Identity Not on file Sexual Orientation [...] Mass Index 29.41 06/08/2025 5:38 AM CDT Plan of Treatment Health Maintenance Due Date Last Done Comments HIV SCREENING 2009 HEPATITIS C SCREENING 09/28/2012 DTAP/TDAP/TD VACCINES (1 - Tdap) 2013 HEPATITIS B VACCINE (1 of 3 - 19+ 3-dose series) 2013 PAP SMEAR 2015 HPV VACCINE (1 - 3-dose SCDM series) [...] patient's age to complete this topic Insurance [employer] [place] MED[place] [employer] [place] Advance Directives * Full Code (Latest Code Status on File) Date Activated Date Inactivated Comments 04/10/2018 4:24 PM 04/11/2018 12:40 PM * Full Code Date Activated Date Inactivated Comments 04/10/2018 3:14 PM 04/10/2018 4:24 PM Care Teams Dining Room Attendant Relationship Specialty Start Date End Date None, Physician PCP - General 06/08/25
--- NOTE | 2025-06-10 01:14 | ED_ITS ---
HPI - General Adult General Chief complaint: Dental/Oral <LV Malave - Last Filed: 06/10/25 17:19> Stated complaint: dental abscess <LV Malave - Last Filed: 06/10/25 17:19> Time Seen by Provider: 06/10/25 00:16 <LV Malave - Last Filed: 06/10/25 17:19> History of Present Illness HPI narrative: 29 year old female presenting with left sided dental pain. Patient states that she first noticed the signs about one week ago and began to take an old prescription of amoxicillin up until today which did not improve her symptoms. She states that this feels equivalent to the abscess she had drained in February on the same side. She endorses a left sided headache, left sided swelling and pain on the left side from her eye down to the base of the side of her neck, dysphagia, and dysphonia. With the headache she endorses sensitivity to light and sound as well as mild dizziness. <LV Malave - Last Filed: 06/10/25 17:19> Related Data Allergies/adverse reactions: Allergies Allergy/AdvReac Type Severity Reaction Status Date / Time dextran sulfate Allergy HIVES Verified 06/09/25 23:35 <LV Malave - Last Filed: 06/10/25 17:19> Review of Systems 2 Review of Systems: All systems reviewed & are unremarkable except as noted in HPI and below <LV Malave - Last Filed: 06/10/25 17:19> PMFSH Social History Social History: Social History Social History: Local Resident; resides in [place] <LV Malave Last Filed: 06/10/25 17:19> Exam 2 Narrative: GENERAL: Well-appearing, well-nourished, and in no acute distress. HEAD: Normocephalic, atraumatic. EYES: PERRLA and EOMI. ENT: Nares clear, no rhinorrhea or epistaxis. Mucous membranes moist. Oropharynx without tonsillar hypertrophy exudate or other lesions. No signs of abscess. Bilateral TMs pearly ybarra non-bulging NECK: Supple. No adenopathy or masses. No carotid bruits or JVD CHEST: Clear to auscultation. No respiratory distress. No wheezes rales or rhonchi. Able to speak in full sentences. HEART: Regular rate and rhythm. No murmur heard. Normal peripheral pulses. ABDOMEN: Soft, nontender, nondistended, normal active bowel sounds. EXTREMITIES: Normal range of motion. No edema. SKIN: Warm, dry, no rash. NEURO: No focal deficits. Alert and oriented x3. PSYCH: Normal mood and affect <LV Malave - Last Filed: 06/10/25 17:19> Course Course Emergency Course: Patient care signed over pending CT scan results. Patient has no acute findings and no evidence of abscess on her CT scan. Already on appropriate antibiotics. Laboratory studies are all normal. Discharge with follow-up with dentistry. <Tony Solorzano MD - Last Filed: 06/10/25 03:40> Vital Signs Vital signs: Vital Signs Temperature 98.2 F 06/10/25 00:20 Pulse Rate 88 06/10/25 00:20 Respiratory Rate 16 06/10/25 00:20 Blood Pressure 119/98 H 06/10/25 00:20 Pulse Oximetry 100 06/10/25 00:20 Oxygen Delivery Room Air 06/10/25 00:20 Temperature 98.2 F 06/10/25 00:20 Pulse Rate 88 06/10/25 00:20 Respiratory Rate 16 06/10/25 00:20 Blood Pressure 119/98 H 06/10/25 00:20 Pulse Oximetry 100 06/10/25 00:20 Oxygen Delivery Room Air 06/10/25 00:20 <LV Malave - Last Filed: 06/10/25 17:19> Vital Signs Temperature 98.2 F 06/10/25 00:20 Pulse Rate 88 06/10/25 00:20 Respiratory Rate 16 06/10/25 00:20 Blood Pressure 119/98 H 06/10/25 00:20 Pulse Oximetry 100 06/10/25 00:20 Oxygen Delivery Room Air 06/10/25 00:20 Temperature 98.2 F 06/10/25 00:20 Pulse Rate 88 06/10/25 00:20 Respiratory Rate 16 06/10/25 00:20 Blood Pressure 119/98 H 06/10/25 00:20 Pulse Oximetry 100 06/10/25 00:20 Oxygen Delivery Room Air 06/10/25 00:20 <Tony Solorzano MD - Last Filed: 06/10/25 03:40> Medical Decision Making MDM Narrative Medical decision making narrative: 29 year old female presenting with left sided dental pain. Patient was sitting comfortably when I entered the room. Patient states that she first noticed the signs about one week ago and began to take an old prescription of amoxicillin up until today which did not improve her symptoms. She states that this feels equivalent to the abscess she had drained in February on the same side. She endorses a left sided headache, left sided swelling and pain on the left side from her eye down to the base of the side of her neck, dysphagia, and dysphonia. With the headache she endorses sensitivity to light and sound as well as mild dizziness. I could not appreciate corresponding findings of swelling or dysphonia on physical exam. CT ordered and care transferred to Dr. Solorzano. Scans showed no acute findings and no evidence of abscess but did show dental disease. Labs were WNL. Patient was already on the appropriate antibiotic course and d/c home in stable condition. Advised to f/u with dentist. <LV Malave - Last Filed: 06/10/25 17:19> Medical Records Medical records reviewed: Yes I reviewed the external patient's medical records. <LV Malave - Last Filed: 06/10/25 17:19> Vital Signs Vital Signs: Vital Signs Temperature 98.2 F 06/10/25 00:20 Pulse Rate 88 06/10/25 00:20 Respiratory Rate 16 06/10/25 00:20 Blood Pressure 119/98 H 06/10/25 00:20 Pulse Oximetry 100 06/10/25 00:20 Oxygen Delivery Room Air 06/10/25 00:20 Temperature 98.2 F 06/10/25 00:20 Pulse Rate 88 06/10/25 00:20 Respiratory Rate 16 06/10/25 00:20 Blood Pressure 119/98 H 06/10/25 00:20 Pulse Oximetry 100 06/10/25 00:20 Oxygen Delivery Room Air 06/10/25 00:20 <LV Malave - Last Filed: 06/10/25 17:19> Vital Signs Temperature 98.2 F 06/10/25 00:20 Pulse Rate 88 06/10/25 00:20 Respiratory Rate 16 06/10/25 00:20 Blood Pressure 119/98 H 06/10/25 00:20 Pulse Oximetry 100 06/10/25 00:20 Oxygen Delivery Room Air 06/10/25 00:20 Temperature 98.2 F 06/10/25 00:20 Pulse Rate 88 06/10/25 00:20 Respiratory Rate 16 06/10/25 00:20 Blood Pressure 119/98 H 06/10/25 00:20 Pulse Oximetry 100 06/10/25 00:20 Oxygen Delivery Room Air 06/10/25 00:20 <Tony Solorzano MD - Last Filed: 06/10/25 03:40> Lab Data Lab results reviewed: Yes I reviewed the patient's lab results. <LV Malave - Last Filed: 06/10/25 17:19> Result diagrams: 06/10/25 02:00 06/10/25 02:00 <LV Malave - Last Filed: 06/10/25 17:19> Labs: Lab Results 06/10/25 Range/Units 02:00 WBC 7.4 (4.5-10.0) K/mm3 RBC 4.09 L (4.2-5.4) M/mm3 Hgb 10.0 L (12.0-15.0) g/dL Hct 32.8 L (37.0-47.0) % MCV 80.2 (80-100) fl MCH 24.4 L (26-34) pg MCHC 30.5 L (32-36) g/dl RDW 14.2 (11.5-14.5) % Plt Count 363 (150-375) k/mm3 MPV 11.2 H (7.4-10.4) fl Immature Gran % (Auto) 0.1 (0-0.5) % Neut % (Auto) 54.5 (45.5-73.1) % Lymph % (Auto) 35.1 (18.3-44.2) % [place] % (Auto) 8.4 (2.6-8.5) % Eos % (Auto) 1.2 (0-4.4) % Baso % (Auto) 0.7 (0.2-1.2) % Lymph # (Auto) 2.59 (0.9-3.2) K/mm3 [place] # (Auto) 0.6 (0.1-0.6) K/mm3 Eos # (Auto) 0.1 (0-0.3) K/mm3 Baso # (Auto) 0.1 (0.0-0.1) K/mm3 Abs Immat Gran (auto) 0.01 (0.00-0.031) K/mm3 Absolute Neuts (auto) 4.0 (1.3-6.7) K/mm3 Absolute Nucleated RBC 0.000 (0.0-0.012) K/mm3 Nucleated RBC % 0.0 (0.0-0.2) % Sodium 138 (137-145) mmol/L Potassium 3.9 (3.4-5.0) mmol/L Chloride 108 H (98-107) mmol/L Carbon Dioxide 23 (22-30) mmol/L Anion Gap 7 (4-12) mmol/L BUN 7 D (7-17) mg/dL Creatinine 0.70 (0.7-1.0) mg/dL Estim Creat Clear Calc 101 ml/min Estimated GFR > 60 (59 - ) Glucose 102 (65-110) mg/dL Calcium 8.6 (8.4-10.2) mg/dL Total Bilirubin 0.5 (0.2-1.3) mg/dL AST 75 H (14-36) U/L ALT 51 H (6-35) U/L Alkaline Phosphatase 70 (38-126) U/L Total Protein 7.4 (6.3-8.2) g/dL Albumin 4.2 (3.5-5.1) g/dL <LV Malave - Last Filed: 06/10/25 17:19> Lab Results 06/10/25 Range/Units 02:00 WBC 7.4 (4.5-10.0) K/mm3 RBC 4.09 L (4.2-5.4) M/mm3 Hgb 10.0 L (12.0-15.0) g/dL Hct 32.8 L (37.0-47.0) % MCV 80.2 (80-100) fl MCH 24.4 L (26-34) pg MCHC 30.5 L (32-36) g/dl RDW 14.2 (11.5-14.5) % Plt Count 363 (150-375) k/mm3 MPV 11.2 H (7.4-10.4) fl Immature Gran % (Auto) 0.1 (0-0.5) % Neut % (Auto) 54.5 (45.5-73.1) % Lymph % (Auto) 35.1 (18.3-44.2) % [place] % (Auto) 8.4 (2.6-8.5) % Eos % (Auto) 1.2 (0-4.4) % Baso % (Auto) 0.7 (0.2-1.2) % Lymph # (Auto) 2.59 (0.9-3.2) K/mm3 [place] # (Auto) 0.6 (0.1-0.6) K/mm3 Eos # (Auto) 0.1 (0-0.3) K/mm3 Baso # (Auto) 0.1 (0.0-0.1) K/mm3 Abs Immat Gran (auto) 0.01 (0.00-0.031) K/mm3 Absolute Neuts (auto) 4.0 (1.3-6.7) K/mm3 Absolute Nucleated RBC 0.000 (0.0-0.012) K/mm3 Nucleated RBC % 0.0 (0.0-0.2) % Sodium 138 (137-145) mmol/L Potassium 3.9 (3.4-5.0) mmol/L Chloride 108 H (98-107) mmol/L Carbon Dioxide 23 (22-30) mmol/L Anion Gap 7 (4-12) mmol/L BUN 7 D (7-17) mg/dL Creatinine 0.70 (0.7-1.0) mg/dL Estim Creat Clear Calc 101 ml/min Estimated GFR > 60 (59 - ) Glucose 102 (65-110) mg/dL Calcium 8.6 (8.4-10.2) mg/dL Total Bilirubin 0.5 (0.2-1.3) mg/dL AST 75 H (14-36) U/L ALT 51 H (6-35) U/L Alkaline Phosphatase 70 (38-126) U/L Total Protein 7.4 (6.3-8.2) g/dL Albumin 4.2 (3.5-5.1) g/dL <Tony Solorzano MD - Last Filed: 06/10/25 03:40> Imaging Data Attestation: I personally reviewed and interpreted this imaging study as follows: < LV Malave - Last Filed: 06/10/25 17:19> Radiologist's impression: ITS Impressions Soft Tissue Neck CT 06/10/25 08:11 IMPRESSION: 1. Dental disease. <LV Malave - Last Filed: 06/10/25 17:19> Discharge Plan Discharge Clinical Impression: Toothache, Dental caries <LV Malave - Last Filed: 06/10/25 17:19> Patient Disposition: Home <LV Malave - Last Filed: 06/10/25 17:19> Condition: Stable <LV Malave - Last Filed: 06/10/25 17:19> Instructions: Antibiotic Form <LV Malave - Last Filed: 06/10/25 17:19> Additional Instructions: CT scan shows no evidence of an abscess. Your are already on appropriate antibiotics. Follow-up with your dentist. Laboratory studies are all normal. <LV Malave - Last Filed: 06/10/25 17:19> Patient Language: Divehi <LV Malave - Last Filed: 06/10/25 17:19> Prescriptions: No Action oxycodone-acetaminophen [Percocet] 10-325 mg tablet 1 tablet PO Q6H PRN (Reason: pain) 5 Days Qty: 20 0RF amoxicillin-pot clavulanate 875-125 mg tablet 1 tablet PO Q12H 5 Days Qty: 10 0RF oxycodone-acetaminophen [Percocet] 10-325 mg tablet 1 tablet PO Q4H PRN (Reason: pain) Qty: 20 0RF <LV Malave - Last Filed: 06/10/25 17:19> Follow-up/Referrals: PHYSICIAN NOT ON STAFF,NONSTAFF [Primary Care Provider] <LV Malave - Last Filed: 06/10/25 17:19>
[2025-06-10 03:40] LABS: Hematocrit 32.8 % (37.0-47.0); Hemoglobin 10.0 g/dL (12.0-15.0); Immature Granulocyte Percent A 0.1 % (0-0.5); Lymphocytes Absolute Auto 2.59 K/mm3 (0.9-3.2); Mean Corpuscular HGB Conc 30.5 g/dl (32-36); Mean Corpuscular Hemoglobin 24.4 pg (26-34); Mean Corpuscular Volume 80.2 fl (80-100); Nucleated Red Blood Cells Absolute Auto 0.000 K/mm3 (0.0-0.012); Nucleated Red Blood Cells Perc 0.0 % (0.0-0.2); Platelet Count Result 363 k/mm3 (150-375); Red Blood Count 4.09 M/mm3 (4.2-5.4); White Blood Count 7.4 K/mm3 (4.5-10.0)
[2025-06-10 03:58] LABS: Alanine Aminotransferase 51 U/L (6-35); Albumin Level 4.2 g/dL (3.5-5.1); Alkaline Phosphatase 70 U/L (38-126); Anion Gap 7 mmol/L (4-12); Aspartate Amino Transferase 75 U/L (14-36); Bilirubin,Total 0.5 mg/dL (0.2-1.3); Blood Urea Nitrogen 7 mg/dL (7-17); Calcium 8.6 mg/dL (8.4-10.2); Carbon Dioxide 23 mmol/L (22-30); Chloride 108 mmol/L (98-107); Estimated CRCL calculation 101 ml/min; Estimated Glomerular Filt Rate > 60; Glucose 102 mg/dL (65-110); Potassium 3.9 mmol/L (3.4-5.0); Sodium 138 mmol/L (137-145); Total Protein 7.4 g/dL (6.3-8.2)
== END 2025-06-10 03:35 | disposition home or self-care (01) ==
DX: K02.9 Dental caries, unspecified (principal)
CPT/HCPCS: 36415; 70491; 80053; 85025; 99284; Q9967